=== PATIENT | male | born 1965 | race African-American/Black ===

== ENCOUNTER 2016-11-22 22:38 | Inpatient (IN) | payer MEDICAID ==
[~2016-11-22] VITALS: Ht 177.8 cm; Wt 96.6 kg
[~2016-11-22 22:38] MED LIST: DIVA500T35 PO; RISP3 PO
[2016-11-23] MEDS ORDERED: MAG HYDROX/AL HYDROX/SIMETH ES 30 ML SUSPENSION UDCUP PO PRN ×2 (02:45→10:30)
[2016-11-23] MEDS ORDERED: MAGNESIUM HYDROXIDE SUSPENSION 30 ML UDCUP PO PRN ×2 (02:45→10:30)
[2016-11-23] MEDS ORDERED: ACETAMINOPHEN 325 MG TABLET PO PRN ×2 (02:45→10:30)
[2016-11-23 03:15] VITALS: BP 128/85
[2016-11-23] MEDS ORDERED: INFLUENZA VIRUS VACCINE QVS 2016-17 (3YR+)/PF 60 MCG/0.5 ML SYRINGE IM ONE (03:45)
[2016-11-23] MEDS: LORazepam 2 MG TABLET PO PRN ×2 (04:20→16:36)
[2016-11-23] MEDS: HALOPERIDOL 5 MG TABLET PO PRN ×2 (04:20→16:36)
[2016-11-23 08:12] VITALS: BP 130/84
[2016-11-23] MEDS: DIVALPROEX SODIUM 500 MG DR TABLET PO SCH ×2 (10:21→16:36)
[2016-11-23] MEDS: RisperiDONE 3 MG TABLET PO SCH ×2 (10:21→16:36)
[2016-11-23] MEDS ORDERED: BENZOCAINE/MENTHOL LOZENGE MM PRN (10:30)
[2016-11-23] MEDS ORDERED: PETROLATUM,WHITE 71 GM JELLY TP PRN (10:30)
[2016-11-23] MEDS ORDERED: ONDANSETRON HCL 4 MG TABLET PO PRN (10:30)
[2016-11-23] MEDS ORDERED: CloNIDine HCL 0.1 MG TABLET PO PRN (10:30)
[2016-11-23] MEDS ORDERED: LOPERAMIDE HCL 2 MG CAPSULE PO PRN (10:30)
[2016-11-23] MEDS ORDERED: BACITRACIN 28.4 GM OINTMENT TP PRN (10:30)
[2016-11-23] MEDS ORDERED: ALBUTEROL SULFATE HFA 90 MCG/PUFF 8 GM INHALER IH PRN (10:30)
[2016-11-23 16:12] VITALS: BP 115/66
[2016-11-23] MEDS: LACTULOSE 20 GM/30 ML SOLUTION UDCUP PO SCH (21:47)
[2016-11-24 08:13] VITALS: BP 138/85
[2016-11-24] MEDS: CHOLECALCIFEROL (VIT D3) 1,000 UNITS TABLET PO SCH (08:27)
[2016-11-24] MEDS: LACTULOSE 20 GM/30 ML SOLUTION UDCUP PO SCH ×3 (08:27→17:17)
[2016-11-24] MEDS: RisperiDONE 3 MG TABLET PO SCH ×2 (08:27→17:18)
[2016-11-24] MEDS: DIVALPROEX SODIUM 500 MG DR TABLET PO SCH ×2 (08:27→17:18)
[2016-11-24] MEDS ORDERED: HALOPERIDOL 5 MG TABLET ONE (17:08)
[2016-11-24] MEDS ORDERED: LORazepam 2 MG TABLET ONE (17:08)
[2016-11-24] MEDS: HALOPERIDOL 5 MG TABLET PO PRN (17:18)
[2016-11-24] MEDS: LORazepam 2 MG TABLET PO PRN (17:18)
[2016-11-25 05:55] VITALS: BP 130/75
[2016-11-25] MEDS: LACTULOSE 20 GM/30 ML SOLUTION UDCUP PO SCH ×3 (09:23→16:00)
[2016-11-25] MEDS: RisperiDONE 3 MG TABLET PO SCH ×2 (09:24→16:00)
[2016-11-25] MEDS: CHOLECALCIFEROL (VIT D3) 1,000 UNITS TABLET PO SCH (09:24)
[2016-11-25] MEDS: DIVALPROEX SODIUM 500 MG DR TABLET PO SCH ×2 (09:24→16:00)
[2016-11-25] MEDS: IBUPROFEN 600 MG TABLET PO PRN (16:00)
[2016-11-26 04:25] VITALS: BP 139/72
[2016-11-26] MEDS: LORazepam 2 MG TABLET PO PRN ×2 (08:09→16:13)
[2016-11-26] MEDS: LACTULOSE 20 GM/30 ML SOLUTION UDCUP PO SCH ×3 (08:09→16:13)
[2016-11-26] MEDS: RisperiDONE 3 MG TABLET PO SCH ×2 (08:09→16:13)
[2016-11-26] MEDS: DIVALPROEX SODIUM 500 MG DR TABLET PO SCH ×2 (08:09→16:13)
[2016-11-26] MEDS: CHOLECALCIFEROL (VIT D3) 1,000 UNITS TABLET PO SCH (08:09)
[2016-11-26] MEDS: HALOPERIDOL 5 MG TABLET PO PRN (16:13)
[2016-11-26 16:49] VITALS: BP 118/78
[2016-11-27 05:30] VITALS: BP 123/71
[2016-11-27] MEDS: LACTULOSE 20 GM/30 ML SOLUTION UDCUP PO SCH ×3 (08:02→16:21)
[2016-11-27] MEDS: LORazepam 2 MG TABLET PO PRN ×2 (08:03→16:21)
[2016-11-27] MEDS: DIVALPROEX SODIUM 500 MG DR TABLET PO SCH ×2 (08:03→16:21)
[2016-11-27] MEDS: RisperiDONE 3 MG TABLET PO SCH ×2 (08:03→16:21)
[2016-11-27] MEDS: CHOLECALCIFEROL (VIT D3) 1,000 UNITS TABLET PO SCH (08:03)
[2016-11-27 10:00] VITALS: BP 109/64
[2016-11-27 16:02] VITALS: BP 110/72
[2016-11-27] MEDS: HALOPERIDOL 5 MG TABLET PO PRN (16:21)
[2016-11-28 04:41] VITALS: BP 115/76
[2016-11-28 08:22] VITALS: BP 108/69
[2016-11-28] MEDS: LORazepam 2 MG TABLET PO PRN ×2 (09:55→16:20)
[2016-11-28] MEDS: CHOLECALCIFEROL (VIT D3) 1,000 UNITS TABLET PO SCH (09:55)
[2016-11-28] MEDS: DIVALPROEX SODIUM 500 MG DR TABLET PO SCH ×2 (09:55→16:19)
[2016-11-28] MEDS: RisperiDONE 3 MG TABLET PO SCH ×2 (09:55→16:19)
[2016-11-28] MEDS: LACTULOSE 20 GM/30 ML SOLUTION UDCUP PO SCH ×3 (09:56→16:19)
[2016-11-28 16:00] VITALS: BP 106/64
[2016-11-28] MEDS: HALOPERIDOL 5 MG TABLET PO PRN (16:20)
[2016-11-29 08:13] VITALS: BP 135/78
[2016-11-29] MEDS: DIVALPROEX SODIUM 500 MG DR TABLET PO SCH ×2 (08:25→16:25)
[2016-11-29] MEDS: LACTULOSE 20 GM/30 ML SOLUTION UDCUP PO SCH ×3 (08:25→16:25)
[2016-11-29] MEDS: LORazepam 2 MG TABLET PO PRN (08:25)
[2016-11-29] MEDS: RisperiDONE 3 MG TABLET PO SCH ×2 (08:25→16:25)
[2016-11-29] MEDS: CHOLECALCIFEROL (VIT D3) 1,000 UNITS TABLET PO SCH (08:25)
[2016-11-29 16:21] VITALS: BP 127/76
[2016-11-30 06:34] VITALS: BP 124/68
[2016-11-30 08:30] VITALS: BP 112/82
[2016-11-30] MEDS: LACTULOSE 20 GM/30 ML SOLUTION UDCUP PO SCH ×3 (08:54→17:03)
[2016-11-30] MEDS: LORazepam 2 MG TABLET PO PRN ×2 (08:54→17:03)
[2016-11-30] MEDS: RisperiDONE 3 MG TABLET PO SCH ×2 (08:55→17:04)
[2016-11-30] MEDS: DIVALPROEX SODIUM 500 MG DR TABLET PO SCH ×2 (08:55→17:04)
[2016-11-30] MEDS: CHOLECALCIFEROL (VIT D3) 1,000 UNITS TABLET PO SCH (08:55)
[2016-11-30 16:17] VITALS: BP 135/77
[2016-12-01 08:42] LABS: BASOPHILS % (AUTO) 0.3 % (0.0-2.0); EOSINOPHILS % (AUTO) 0.7 % (1.0-6.0); HEMATOCRIT 33.2 % (41-53); HEMOGLOBIN 10.9 g/dL (13.5-17.5); LYMPHOCYTES # (AUTO) 2.3 K/uL (1.0-4.8); LYMPHOCYTES % (AUTO) 12.7 % (22.0-44.0); MEAN CORPUSCULAR HEMOGLOBIN 27.2 pg (26.0-34.0); MEAN CORPUSCULAR HGB CONC 32.7 G/dL (31.0-37.0); MEAN CORPUSCULAR VOLUME 83 fL (80-100); MONOCYTES # (AUTO) 1.7 K/uL (0.1-1.0); MONOCYTES % (AUTO) 9.4 % (2.0-9.0); NEUTROPHILS # (AUTO) 14.2 K/uL (1.8-7.7); NEUTROPHILS % (AUTO) 76.9 % (40.0-70.0); PLATELET COUNT (AUTO) 641 K/uL (150-450); RED BLOOD CELL COUNT(AUTO) 3.99 MIL/uL (4.50-5.90); RED CELL DISTRIBUTION WIDTH 13.5 % (11.5-14.5); WHITE BLOOD COUNT (AUTO) 18.4 K/uL (4.5-11.0)
[2016-12-01 09:07] LABS: ALANINE AMINOTRANSFERASE 25 U/L (12-78); ALBUMIN 2.8 g/dL (3.4-5.0); ANION GAP 6 mmol/L (8-16); ASPARTATE AMINOTRANSFERASE 15 U/L (15-37); BILIRUBIN,TOTAL 0.2 mg/dL (0.1-1.0); CALCIUM, TOTAL 8.6 mg/dL (8.8-10.5); CARBON DIOXIDE 31 mmol/L (22-29); CHLORIDE 102 mmol/L (98-107); CREATININE 0.79 mg/dL (0.60-1.30); GLOMERULAR FILTR. RATE CALC > 60 mL/min (>60); PHOSPHORUS 4.9 mg/dL (2.5-4.9); POTASSIUM 5.6 mmol/L (3.5-5.1); SODIUM SERUM 139 mmol/L (136-145); TOTAL PROTEIN, SERUM 7.3 g/dL (6.4-8.2); UREA NITROGEN, BLOOD 18 mg/dL (7-18)
[2016-12-01] MEDS: DIVALPROEX SODIUM 500 MG DR TABLET PO SCH ×2 (09:36→16:23)
[2016-12-01] MEDS: CHOLECALCIFEROL (VIT D3) 1,000 UNITS TABLET PO SCH (09:36)
[2016-12-01] MEDS: RisperiDONE 3 MG TABLET PO SCH ×2 (09:36→16:23)
[2016-12-01] MEDS: LACTULOSE 20 GM/30 ML SOLUTION UDCUP PO SCH ×3 (09:36→16:23)
[2016-12-01] MEDS: LORazepam 2 MG TABLET PO PRN ×2 (09:36→16:23)
[2016-12-01 16:14] VITALS: BP 117/75
[2016-12-01] MEDS ORDERED: SODIUM POLYSTYRENE SULFONATE 15 GM/60 ML SUSPENSION BOTTLE PO ONE (21:30)
[2016-12-02 06:31] VITALS: BP 120/76
[2016-12-02 08:13] VITALS: BP 137/82
[2016-12-02 09:39] LABS: HEMATOCRIT 32.5 % (41-53); HEMOGLOBIN 10.5 g/dL (13.5-17.5); MEAN CORPUSCULAR HEMOGLOBIN 26.7 pg (26.0-34.0); MEAN CORPUSCULAR HGB CONC 32.3 G/dL (31.0-37.0); MEAN CORPUSCULAR VOLUME 83 fL (80-100); PLATELET COUNT (AUTO) 720 K/uL (150-450); RED BLOOD CELL COUNT(AUTO) 3.92 MIL/uL (4.50-5.90); RED CELL DISTRIBUTION WIDTH 13.7 % (11.5-14.5); WHITE BLOOD COUNT (AUTO) 18.7 K/uL (4.5-11.0)
[2016-12-02 09:53] LABS: ANION GAP 7 mmol/L (8-16); CALCIUM, TOTAL 8.7 mg/dL (8.8-10.5); CARBON DIOXIDE 30 mmol/L (22-29); CHLORIDE 102 mmol/L (98-107); CREATININE 0.87 mg/dL (0.60-1.30); GLOMERULAR FILTR. RATE CALC > 60 mL/min (>60); SODIUM SERUM 139 mmol/L (136-145); UREA NITROGEN, BLOOD 22 mg/dL (7-18)
[2016-12-02] MEDS: RisperiDONE 3 MG TABLET PO SCH ×2 (09:54→16:32)
[2016-12-02] MEDS: DIVALPROEX SODIUM 500 MG DR TABLET PO SCH ×2 (09:54→16:32)
[2016-12-02] MEDS: CHOLECALCIFEROL (VIT D3) 1,000 UNITS TABLET PO SCH (09:54)
[2016-12-02] MEDS: LORazepam 2 MG TABLET PO PRN ×2 (09:54→16:32)
[2016-12-02] MEDS: LACTULOSE 20 GM/30 ML SOLUTION UDCUP PO SCH ×3 (09:55→16:32)
[2016-12-02 10:25] LABS: BAND NEUTROPHILS % (MANUAL) 12 % (1-5); LYMPHOCYTES % (MANUAL) 25 % (22-44); RBC MORPHOLOGY COMMENT NORMAL RBC MORPH; TOTAL CELLS COUNTED 100
[2016-12-02 16:04] VITALS: BP 128/76
[2016-12-02] MEDS: HALOPERIDOL 5 MG TABLET PO PRN (16:32)
[2016-12-03 06:10] VITALS: BP 120/73
[2016-12-03 07:26] LABS: APPEARANCE,URINE CLOUDY (CLEAR); GLUCOSE, URINE (UA) NEGATIVE (NEGATIVE); KETONES,URINE NEGATIVE (NEGATIVE); LEUKOCYTE ESTERASE ,URINE MODERATE (NEGATIVE); OCCULT BLOOD,URINE NEGATIVE (NEGATIVE); PROTEIN,URINE NEGATIVE (NEGATIVE)
[2016-12-03 07:30] LABS: ADD UA MICROSCOPIC YES
[2016-12-03 07:31] LABS: RBC,URINE 0-2 /HPF (0-2); SQUAMOUS EPITHELIAL CELL,UR Few /LPF (None Seen)
[2016-12-03 08:12] VITALS: BP 130/66
[2016-12-03] MEDS: CHOLECALCIFEROL (VIT D3) 1,000 UNITS TABLET PO SCH (09:35)
[2016-12-03] MEDS: LORazepam 2 MG TABLET PO PRN ×2 (09:35→17:22)
[2016-12-03] MEDS: RisperiDONE 3 MG TABLET PO SCH ×2 (09:35→17:22)
[2016-12-03] MEDS: LACTULOSE 20 GM/30 ML SOLUTION UDCUP PO SCH ×3 (09:36→17:22)
[2016-12-03] MEDS: DIVALPROEX SODIUM 500 MG DR TABLET PO SCH ×2 (09:36→17:22)
[2016-12-03 16:00] VITALS: BP 138/70
[2016-12-04 02:39] VITALS: BP 140/87
[2016-12-04 08:13] VITALS: BP 117/61
[2016-12-04] MEDS: LACTULOSE 20 GM/30 ML SOLUTION UDCUP PO SCH ×3 (09:11→16:30)
[2016-12-04] MEDS: CHOLECALCIFEROL (VIT D3) 1,000 UNITS TABLET PO SCH (09:11)
[2016-12-04] MEDS: RisperiDONE 3 MG TABLET PO SCH ×2 (09:11→16:30)
[2016-12-04] MEDS: DIVALPROEX SODIUM 500 MG DR TABLET PO SCH ×2 (09:11→16:30)
[2016-12-04] MEDS: CIPROFLOXACIN HCL 500 MG TABLET PO SCH (16:30)
[2016-12-05 01:30] VITALS: BP 125/83
[2016-12-05] MEDS: IBUPROFEN 600 MG TABLET PO PRN (01:36)
[2016-12-05 04:06] LABS: HEPATITIS Bs ANTIGEN SCREEN P Negative (Negative); HEPATITIS C AB SCREEN 0.2 s/co ratio (0.0-0.9)
[2016-12-05 08:25] VITALS: BP 135/80
[2016-12-05] MEDS: RisperiDONE 3 MG TABLET PO SCH ×2 (09:28→17:10)
[2016-12-05] MEDS: CHOLECALCIFEROL (VIT D3) 1,000 UNITS TABLET PO SCH (09:28)
[2016-12-05] MEDS: CIPROFLOXACIN HCL 500 MG TABLET PO SCH ×2 (09:28→17:10)
[2016-12-05] MEDS: DIVALPROEX SODIUM 500 MG DR TABLET PO SCH ×2 (09:28→17:10)
[2016-12-05] MEDS: LACTULOSE 20 GM/30 ML SOLUTION UDCUP PO SCH ×3 (09:28→17:10)
[2016-12-05 16:00] VITALS: BP 131/72
[2016-12-05] MEDS: LORazepam 2 MG TABLET PO PRN (17:10)
[2016-12-05] MEDS: ZOLPIDEM TARTRATE 10 MG TABLET PO PRN (20:12)
[2016-12-06 07:31] VITALS: BP 141/84
[2016-12-06 08:13] VITALS: BP 140/68
[2016-12-06] MEDS: DIVALPROEX SODIUM 500 MG DR TABLET PO SCH ×2 (09:54→16:38)
[2016-12-06] MEDS: LACTULOSE 20 GM/30 ML SOLUTION UDCUP PO SCH ×3 (09:54→16:38)
[2016-12-06] MEDS: CIPROFLOXACIN HCL 500 MG TABLET PO SCH ×2 (09:54→16:38)
[2016-12-06] MEDS: RisperiDONE 3 MG TABLET PO SCH ×2 (09:54→16:38)
[2016-12-06] MEDS: CHOLECALCIFEROL (VIT D3) 1,000 UNITS TABLET PO SCH (09:55)
[2016-12-06] MEDS: LORazepam 2 MG TABLET PO PRN ×2 (09:55→16:38)
[2016-12-06 16:00] VITALS: BP 110/69
[2016-12-06] MEDS: AMOX TR/POT CLAV 500 MG/125 MG TABLET PO SCH (16:38)
[2016-12-07 02:03] VITALS: BP 124/66
[2016-12-07 08:13] VITALS: BP 140/85
[2016-12-07] MEDS: CIPROFLOXACIN HCL 500 MG TABLET PO SCH ×2 (09:57→16:22)
[2016-12-07] MEDS: DIVALPROEX SODIUM 500 MG DR TABLET PO SCH ×2 (09:57→16:22)
[2016-12-07] MEDS: RisperiDONE 3 MG TABLET PO SCH ×2 (09:57→16:22)
[2016-12-07] MEDS: AMOX TR/POT CLAV 500 MG/125 MG TABLET PO SCH ×2 (09:57→16:22)
[2016-12-07] MEDS: CHOLECALCIFEROL (VIT D3) 1,000 UNITS TABLET PO SCH (09:57)
[2016-12-07] MEDS: LACTULOSE 20 GM/30 ML SOLUTION UDCUP PO SCH (09:57)
[2016-12-07] MEDS: LORazepam 2 MG TABLET PO PRN ×2 (09:57→16:22)
[2016-12-07 16:16] VITALS: BP 127/70
[2016-12-07] MEDS: HALOPERIDOL 5 MG TABLET PO PRN (16:22)
[2016-12-08 06:33] VITALS: BP 137/80
[2016-12-08] MEDS: RisperiDONE 3 MG TABLET PO SCH ×2 (08:03→16:12)
[2016-12-08] MEDS: CIPROFLOXACIN HCL 500 MG TABLET PO SCH ×2 (08:03→16:12)
[2016-12-08] MEDS: LACTULOSE 20 GM/30 ML SOLUTION UDCUP PO SCH (08:03)
[2016-12-08] MEDS: CHOLECALCIFEROL (VIT D3) 1,000 UNITS TABLET PO SCH (08:03)
[2016-12-08] MEDS: DIVALPROEX SODIUM 500 MG DR TABLET PO SCH ×2 (08:03→16:12)
[2016-12-08] MEDS: AMOX TR/POT CLAV 500 MG/125 MG TABLET PO SCH ×2 (08:03→16:12)
[2016-12-08 08:11] VITALS: BP 135/80
[2016-12-08] MEDS: IBUPROFEN 600 MG TABLET PO PRN (13:25)
[2016-12-08 16:08] VITALS: BP 148/67
[2016-12-08] MEDS: LORazepam 2 MG TABLET PO PRN (16:12)
[2016-12-08] MEDS: HALOPERIDOL 5 MG TABLET PO PRN (16:12)
[2016-12-09 00:31] VITALS: BP 147/65
[2016-12-09 08:13] VITALS: BP 145/85
[2016-12-09] MEDS: RisperiDONE 3 MG TABLET PO SCH ×2 (09:15→17:13)
[2016-12-09] MEDS: AMOX TR/POT CLAV 500 MG/125 MG TABLET PO SCH ×2 (09:15→17:13)
[2016-12-09] MEDS: CIPROFLOXACIN HCL 500 MG TABLET PO SCH ×2 (09:15→17:13)
[2016-12-09] MEDS: LACTULOSE 20 GM/30 ML SOLUTION UDCUP PO SCH (09:15)
[2016-12-09] MEDS: DIVALPROEX SODIUM 500 MG DR TABLET PO SCH ×2 (09:15→17:13)
[2016-12-09] MEDS: CHOLECALCIFEROL (VIT D3) 1,000 UNITS TABLET PO SCH (09:15)
[2016-12-09] MEDS: LORazepam 2 MG TABLET PO PRN ×2 (09:16→17:13)
[2016-12-09] MEDS: HALOPERIDOL 5 MG TABLET PO PRN ×2 (09:16→17:13)
[2016-12-09 16:00] VITALS: BP 124/67
[2016-12-10 06:50] VITALS: BP 134/85
[2016-12-10 08:39] VITALS: BP 136/64
[2016-12-10] MEDS: CIPROFLOXACIN HCL 500 MG TABLET PO SCH ×2 (09:16→17:42)
[2016-12-10] MEDS: DIVALPROEX SODIUM 500 MG DR TABLET PO SCH ×2 (09:16→17:42)
[2016-12-10] MEDS: LACTULOSE 20 GM/30 ML SOLUTION UDCUP PO SCH (09:17)
[2016-12-10] MEDS: AMOX TR/POT CLAV 500 MG/125 MG TABLET PO SCH ×2 (09:17→17:42)
[2016-12-10] MEDS: CHOLECALCIFEROL (VIT D3) 1,000 UNITS TABLET PO SCH (09:17)
[2016-12-10] MEDS: RisperiDONE 3 MG TABLET PO SCH ×2 (09:17→17:43)
[2016-12-10 16:00] VITALS: BP 145/86
[2016-12-10] MEDS: LORazepam 2 MG TABLET PO PRN (17:42)
[2016-12-10] MEDS: HALOPERIDOL 5 MG TABLET PO PRN (17:43)
[2016-12-11] MEDS: LORazepam 2 MG TABLET PO PRN ×3 (00:28→16:21)
[2016-12-11] MEDS: ZOLPIDEM TARTRATE 10 MG TABLET PO PRN (00:28)
[2016-12-11 00:34] VITALS: BP 139/76
[2016-12-11 08:12] VITALS: BP 125/81
[2016-12-11] MEDS: CIPROFLOXACIN HCL 500 MG TABLET PO SCH (09:49)
[2016-12-11] MEDS: AMOX TR/POT CLAV 500 MG/125 MG TABLET PO SCH ×2 (09:49→16:21)
[2016-12-11] MEDS: LACTULOSE 20 GM/30 ML SOLUTION UDCUP PO SCH (09:49)
[2016-12-11] MEDS: CHOLECALCIFEROL (VIT D3) 1,000 UNITS TABLET PO SCH (09:50)
[2016-12-11] MEDS: DIVALPROEX SODIUM 500 MG DR TABLET PO SCH ×2 (09:50→16:21)
[2016-12-11] MEDS: RisperiDONE 3 MG TABLET PO SCH ×2 (09:50→16:21)
[2016-12-11 16:12] VITALS: BP 118/78
[2016-12-11] MEDS: HALOPERIDOL 5 MG TABLET PO PRN (16:21)
[2016-12-12 03:50] VITALS: BP 112/79
[2016-12-12 08:13] VITALS: BP 126/86
[2016-12-12] MEDS: LACTULOSE 20 GM/30 ML SOLUTION UDCUP PO SCH (09:26)
[2016-12-12] MEDS: RisperiDONE 3 MG TABLET PO SCH ×2 (09:27→16:42)
[2016-12-12] MEDS: AMOX TR/POT CLAV 500 MG/125 MG TABLET PO SCH ×2 (09:27→16:42)
[2016-12-12] MEDS: DIVALPROEX SODIUM 500 MG DR TABLET PO SCH ×2 (09:27→16:42)
[2016-12-12] MEDS: CHOLECALCIFEROL (VIT D3) 1,000 UNITS TABLET PO SCH (09:27)
[2016-12-12 16:00] VITALS: BP 128/84
[2016-12-12] MEDS: HALOPERIDOL 5 MG TABLET PO PRN (16:42)
[2016-12-12] MEDS: LORazepam 2 MG TABLET PO PRN (16:42)
[2016-12-13 01:00] VITALS: BP 117/71
[2016-12-13] MEDS: LORazepam 2 MG TABLET PO PRN ×2 (01:04→16:24)
[2016-12-13] MEDS: ZOLPIDEM TARTRATE 10 MG TABLET PO PRN (01:04)
[2016-12-13 08:12] VITALS: BP 140/84
[2016-12-13] MEDS: CHOLECALCIFEROL (VIT D3) 1,000 UNITS TABLET PO SCH (09:42)
[2016-12-13] MEDS: AMOX TR/POT CLAV 500 MG/125 MG TABLET PO SCH ×2 (09:42→16:24)
[2016-12-13] MEDS: LACTULOSE 20 GM/30 ML SOLUTION UDCUP PO SCH (09:42)
[2016-12-13] MEDS: DIVALPROEX SODIUM 500 MG DR TABLET PO SCH ×2 (09:43→16:24)
[2016-12-13] MEDS: RisperiDONE 3 MG TABLET PO SCH ×2 (09:43→16:24)
[2016-12-13 16:00] VITALS: BP 130/70
[2016-12-13] MEDS: HALOPERIDOL 5 MG TABLET PO PRN (16:24)
[2016-12-14 06:33] VITALS: BP 125/63
[2016-12-14 08:38] VITALS: BP 122/79
[2016-12-14] MEDS: CHOLECALCIFEROL (VIT D3) 1,000 UNITS TABLET PO SCH (09:13)
[2016-12-14] MEDS: DIVALPROEX SODIUM 500 MG DR TABLET PO SCH ×2 (09:13→16:36)
[2016-12-14] MEDS: RisperiDONE 3 MG TABLET PO SCH ×2 (09:14→16:36)
[2016-12-14] MEDS: LACTULOSE 20 GM/30 ML SOLUTION UDCUP PO SCH (09:14)
[2016-12-14] MEDS: AMOX TR/POT CLAV 500 MG/125 MG TABLET PO SCH ×2 (09:45→16:36)
[2016-12-14 16:00] VITALS: BP 127/71
[2016-12-14] MEDS: LORazepam 2 MG TABLET PO PRN (16:36)
[2016-12-14] MEDS: HALOPERIDOL 5 MG TABLET PO PRN (16:36)
[2016-12-14] MEDS ORDERED: TUBERCULIN, PURIFIED PROTEIN DERIVATIVE 5 TU/0.1 ML SYG ID ONE (18:30)
[2016-12-15] MEDS: LORazepam 2 MG TABLET PO PRN ×2 (01:03→18:07)
[2016-12-15] MEDS: ZOLPIDEM TARTRATE 10 MG TABLET PO PRN (01:03)
[2016-12-15] MEDS: HALOPERIDOL 5 MG TABLET PO PRN ×2 (01:04→18:06)
[2016-12-15 01:05] VITALS: BP 133/79
[2016-12-15 08:28] VITALS: BP 133/77
[2016-12-15] MEDS: AMOX TR/POT CLAV 500 MG/125 MG TABLET PO SCH ×2 (09:04→16:41)
[2016-12-15] MEDS: DIVALPROEX SODIUM 500 MG DR TABLET PO SCH ×2 (09:04→16:41)
[2016-12-15] MEDS: CHOLECALCIFEROL (VIT D3) 1,000 UNITS TABLET PO SCH (09:04)
[2016-12-15] MEDS: LACTULOSE 20 GM/30 ML SOLUTION UDCUP PO SCH (09:04)
[2016-12-15] MEDS: RisperiDONE 3 MG TABLET PO SCH ×2 (09:04→16:41)
[2016-12-15 17:00] VITALS: BP 137/67
[2016-12-16 06:30] VITALS: BP 129/79
[2016-12-16] MEDS: RisperiDONE 3 MG TABLET PO SCH ×2 (09:25→17:14)
[2016-12-16] MEDS: AMOX TR/POT CLAV 500 MG/125 MG TABLET PO SCH (09:25)
[2016-12-16] MEDS: DIVALPROEX SODIUM 500 MG DR TABLET PO SCH ×2 (09:25→17:13)
[2016-12-16] MEDS: CHOLECALCIFEROL (VIT D3) 1,000 UNITS TABLET PO SCH (09:25)
[2016-12-16] MEDS: LACTULOSE 20 GM/30 ML SOLUTION UDCUP PO SCH (09:25)
[2016-12-16] MEDS: LORazepam 2 MG TABLET PO PRN ×2 (09:25→17:14)
[2016-12-16 16:17] VITALS: BP 125/71
[2016-12-16] MEDS: HALOPERIDOL 5 MG TABLET PO PRN (17:14)
[2016-12-17] MEDS: CHOLECALCIFEROL (VIT D3) 1,000 UNITS TABLET PO SCH (09:41)
[2016-12-17] MEDS: LACTULOSE 20 GM/30 ML SOLUTION UDCUP PO SCH (09:41)
[2016-12-17] MEDS: DIVALPROEX SODIUM 500 MG DR TABLET PO SCH ×2 (09:41→16:15)
[2016-12-17] MEDS: RisperiDONE 3 MG TABLET PO SCH ×2 (09:41→16:15)
[2016-12-17] MEDS: LORazepam 2 MG TABLET PO PRN (16:15)
[2016-12-17 16:26] VITALS: BP 137/71
[2016-12-18 05:56] VITALS: BP 136/72
[2016-12-18 09:04] VITALS: BP 131/73
[2016-12-18] MEDS: HALOPERIDOL 5 MG TABLET PO PRN (11:34)
[2016-12-18] MEDS: DIVALPROEX SODIUM 500 MG DR TABLET PO SCH ×2 (11:34→16:19)
[2016-12-18] MEDS: LORazepam 2 MG TABLET PO PRN ×2 (11:34→16:19)
[2016-12-18] MEDS: CHOLECALCIFEROL (VIT D3) 1,000 UNITS TABLET PO SCH (11:34)
[2016-12-18] MEDS: RisperiDONE 3 MG TABLET PO SCH ×2 (11:34→16:19)
[2016-12-18] MEDS: LACTULOSE 20 GM/30 ML SOLUTION UDCUP PO SCH (11:34)
[2016-12-18 16:00] VITALS: BP 118/65
[2016-12-19 05:20] VITALS: BP 137/69
[2016-12-19] MEDS: CHOLECALCIFEROL (VIT D3) 1,000 UNITS TABLET PO SCH (08:50)
[2016-12-19] MEDS: DIVALPROEX SODIUM 500 MG DR TABLET PO SCH ×2 (08:50→17:30)
[2016-12-19] MEDS: RisperiDONE 3 MG TABLET PO SCH ×2 (08:50→17:30)
[2016-12-19] MEDS: LACTULOSE 20 GM/30 ML SOLUTION UDCUP PO SCH (08:50)
[2016-12-19 16:20] VITALS: BP 121/68
[2016-12-19] MEDS: LORazepam 2 MG TABLET PO PRN (17:30)
[2016-12-20 03:06] VITALS: BP 126/70
[2016-12-20 08:37] VITALS: BP 112/78
[2016-12-20] MEDS: LORazepam 2 MG TABLET PO PRN ×2 (09:40→17:00)
[2016-12-20] MEDS: RisperiDONE 3 MG TABLET PO SCH ×2 (09:40→17:00)
[2016-12-20] MEDS: LACTULOSE 20 GM/30 ML SOLUTION UDCUP PO SCH (09:40)
[2016-12-20] MEDS: CHOLECALCIFEROL (VIT D3) 1,000 UNITS TABLET PO SCH (09:40)
[2016-12-20] MEDS: DIVALPROEX SODIUM 500 MG DR TABLET PO SCH ×2 (09:40→17:00)
[2016-12-20] MEDS ORDERED: DICLOFENAC SODIUM 1% 100 GM GEL [2GM] TP PRN (12:00)
[2016-12-20 16:00] VITALS: BP 114/68
[2016-12-21 05:47] VITALS: BP 119/72
[2016-12-21 08:31] VITALS: BP 137/80
[2016-12-21] MEDS: LACTULOSE 20 GM/30 ML SOLUTION UDCUP PO SCH (08:48)
[2016-12-21] MEDS: DIVALPROEX SODIUM 500 MG DR TABLET PO SCH ×2 (08:48→16:17)
[2016-12-21] MEDS: LORazepam 2 MG TABLET PO PRN ×2 (08:48→16:17)
[2016-12-21] MEDS: CHOLECALCIFEROL (VIT D3) 1,000 UNITS TABLET PO SCH (08:48)
[2016-12-21] MEDS: RisperiDONE 3 MG TABLET PO SCH ×2 (08:48→16:17)
[2016-12-21 16:00] VITALS: BP 129/73
[2016-12-21] MEDS: HALOPERIDOL 5 MG TABLET PO PRN (16:17)
[2016-12-22 06:53] VITALS: BP 125/76
[2016-12-22 08:12] VITALS: BP 120/83
[2016-12-22] MEDS: LACTULOSE 20 GM/30 ML SOLUTION UDCUP PO SCH (08:58)
[2016-12-22] MEDS: RisperiDONE 3 MG TABLET PO SCH ×2 (08:58→16:04)
[2016-12-22] MEDS: CHOLECALCIFEROL (VIT D3) 1,000 UNITS TABLET PO SCH (08:58)
[2016-12-22] MEDS: DIVALPROEX SODIUM 500 MG DR TABLET PO SCH ×2 (08:58→16:04)
[2016-12-22 16:00] VITALS: BP 132/80
[2016-12-22] MEDS: LORazepam 2 MG TABLET PO PRN (16:04)
[2016-12-23 05:15] VITALS: BP 115/68
[2016-12-23 08:25] VITALS: BP 116/63
[2016-12-23] MEDS: RisperiDONE 3 MG TABLET PO SCH (08:58)
[2016-12-23] MEDS: CHOLECALCIFEROL (VIT D3) 1,000 UNITS TABLET PO SCH (08:58)
[2016-12-23] MEDS: LACTULOSE 20 GM/30 ML SOLUTION UDCUP PO SCH (08:58)
[2016-12-23] MEDS: DIVALPROEX SODIUM 500 MG DR TABLET PO SCH ×3 (08:58→16:29)
[2016-12-23 16:00] VITALS: BP 134/68
[2016-12-23] MEDS: LORazepam 2 MG TABLET PO PRN (16:29)
[2016-12-23] MEDS: BENZTROPINE MESYLATE 1 MG TABLET PO SCH (16:29)
[2016-12-23] MEDS: QUEtiapine FUMARATE 200 MG TABLET PO SCH (20:24)
[2016-12-23] MEDS: HALOPERIDOL 10 MG TABLET PO SCH (20:24)
[2016-12-24 06:40] VITALS: BP 135/86
[2016-12-24 08:35] VITALS: BP 115/62
[2016-12-24] MEDS: CHOLECALCIFEROL (VIT D3) 1,000 UNITS TABLET PO SCH (09:03)
[2016-12-24] MEDS: BENZTROPINE MESYLATE 1 MG TABLET PO SCH ×2 (09:03→17:02)
[2016-12-24] MEDS: DIVALPROEX SODIUM 500 MG DR TABLET PO SCH ×3 (09:03→17:02)
[2016-12-24] MEDS: LACTULOSE 20 GM/30 ML SOLUTION UDCUP PO SCH (09:03)
[2016-12-24 16:16] VITALS: BP 138/75
[2016-12-24] MEDS: HALOPERIDOL 10 MG TABLET PO SCH (21:27)
[2016-12-24] MEDS: QUEtiapine FUMARATE 200 MG TABLET PO SCH (21:27)
[2016-12-25 05:49] VITALS: BP 133/72
[2016-12-25] MEDS: DIVALPROEX SODIUM 500 MG DR TABLET PO SCH ×3 (08:56→17:25)
[2016-12-25] MEDS: BENZTROPINE MESYLATE 1 MG TABLET PO SCH ×2 (08:56→17:25)
[2016-12-25] MEDS: LACTULOSE 20 GM/30 ML SOLUTION UDCUP PO SCH (08:56)
[2016-12-25] MEDS: CHOLECALCIFEROL (VIT D3) 1,000 UNITS TABLET PO SCH (08:56)
[2016-12-25 16:32] VITALS: BP 139/76
[2016-12-25] MEDS: QUEtiapine FUMARATE 200 MG TABLET PO SCH (22:06)
[2016-12-25] MEDS: HALOPERIDOL 10 MG TABLET PO SCH (22:06)
[2016-12-26 05:55] VITALS: BP 105/66
[2016-12-26] MEDS: BENZTROPINE MESYLATE 1 MG TABLET PO SCH ×2 (08:27→16:19)
[2016-12-26] MEDS: CHOLECALCIFEROL (VIT D3) 1,000 UNITS TABLET PO SCH (08:27)
[2016-12-26] MEDS: LACTULOSE 20 GM/30 ML SOLUTION UDCUP PO SCH (08:27)
[2016-12-26] MEDS: DIVALPROEX SODIUM 500 MG DR TABLET PO SCH ×3 (08:27→16:19)
[2016-12-26 08:59] VITALS: BP 107/67
[2016-12-26] MEDS: HALOPERIDOL 10 MG TABLET PO SCH (20:29)
[2016-12-26] MEDS: QUEtiapine FUMARATE 200 MG TABLET PO SCH (20:29)
[2016-12-27 07:07] VITALS: BP 102/71
[2016-12-27 08:18] VITALS: BP 105/64
[2016-12-27] MEDS: DIVALPROEX SODIUM 500 MG DR TABLET PO SCH ×3 (09:53→17:44)
[2016-12-27] MEDS: LACTULOSE 20 GM/30 ML SOLUTION UDCUP PO SCH (09:53)
[2016-12-27] MEDS: CHOLECALCIFEROL (VIT D3) 1,000 UNITS TABLET PO SCH (09:53)
[2016-12-27] MEDS: BENZTROPINE MESYLATE 1 MG TABLET PO SCH ×2 (09:53→17:44)
[2016-12-27 16:00] VITALS: BP 119/76
[2016-12-27] MEDS: HALOPERIDOL 10 MG TABLET PO SCH (20:33)
[2016-12-27] MEDS: QUEtiapine FUMARATE 200 MG TABLET PO SCH (20:33)
[2016-12-28 06:56] VITALS: BP 123/78
[2016-12-28 08:40] VITALS: BP 127/73
[2016-12-28] MEDS: BENZTROPINE MESYLATE 1 MG TABLET PO SCH ×2 (09:11→16:44)
[2016-12-28] MEDS: LACTULOSE 20 GM/30 ML SOLUTION UDCUP PO SCH (09:11)
[2016-12-28] MEDS: DIVALPROEX SODIUM 500 MG DR TABLET PO SCH ×3 (09:11→16:44)
[2016-12-28] MEDS: CHOLECALCIFEROL (VIT D3) 1,000 UNITS TABLET PO SCH (09:11)
[2016-12-28 16:00] VITALS: BP 112/67
[2016-12-28] MEDS: QUEtiapine FUMARATE 200 MG TABLET PO SCH (20:35)
[2016-12-28] MEDS: HALOPERIDOL 10 MG TABLET PO SCH (20:35)
[2016-12-29 07:13] VITALS: BP 115/75
[2016-12-29 08:37] VITALS: BP 112/66
[2016-12-29] MEDS: CHOLECALCIFEROL (VIT D3) 1,000 UNITS TABLET PO SCH (09:22)
[2016-12-29] MEDS: DIVALPROEX SODIUM 500 MG DR TABLET PO SCH ×3 (09:22→16:18)
[2016-12-29] MEDS: BENZTROPINE MESYLATE 1 MG TABLET PO SCH ×2 (09:22→16:18)
[2016-12-29] MEDS: LACTULOSE 20 GM/30 ML SOLUTION UDCUP PO SCH (09:22)
[2016-12-29 16:05] VITALS: BP 116/68
[2016-12-29] MEDS: QUEtiapine FUMARATE 200 MG TABLET PO SCH (20:02)
[2016-12-29] MEDS: HALOPERIDOL 10 MG TABLET PO SCH (20:02)
[2016-12-30 05:28] VITALS: BP 118/75
[2016-12-30 08:44] VITALS: BP 98/60
[2016-12-30] MEDS: CHOLECALCIFEROL (VIT D3) 1,000 UNITS TABLET PO SCH (09:13)
[2016-12-30] MEDS: BENZTROPINE MESYLATE 1 MG TABLET PO SCH ×2 (09:13→16:44)
[2016-12-30] MEDS: LACTULOSE 20 GM/30 ML SOLUTION UDCUP PO SCH (09:13)
[2016-12-30] MEDS: DIVALPROEX SODIUM 500 MG DR TABLET PO SCH ×3 (09:13→16:43)
[2016-12-30 16:19] VITALS: BP 116/71
[2016-12-30] MEDS: QUEtiapine FUMARATE 200 MG TABLET PO SCH (20:30)
[2016-12-30] MEDS: HALOPERIDOL 10 MG TABLET PO SCH (20:30)
[2016-12-31 06:18] VITALS: BP 108/62
[2016-12-31] MEDS: LACTULOSE 20 GM/30 ML SOLUTION UDCUP PO SCH (09:19)
[2016-12-31] MEDS: CHOLECALCIFEROL (VIT D3) 1,000 UNITS TABLET PO SCH (09:19)
[2016-12-31] MEDS: BENZTROPINE MESYLATE 1 MG TABLET PO SCH ×2 (09:19→16:32)
[2016-12-31] MEDS: DIVALPROEX SODIUM 500 MG DR TABLET PO SCH ×3 (09:19→16:32)
[2016-12-31 09:43] VITALS: BP 112/77
[2016-12-31 16:03] VITALS: BP 114/69
[2016-12-31] MEDS: QUEtiapine FUMARATE 200 MG TABLET PO SCH (20:46)
[2016-12-31] MEDS: HALOPERIDOL 10 MG TABLET PO SCH (20:46)
[2017-01-01 06:38] VITALS: BP 117/65
[2017-01-01 08:14] VITALS: BP 116/65
[2017-01-01] MEDS: DIVALPROEX SODIUM 500 MG DR TABLET PO SCH ×3 (08:55→16:28)
[2017-01-01] MEDS: LACTULOSE 20 GM/30 ML SOLUTION UDCUP PO SCH (08:55)
[2017-01-01] MEDS: CHOLECALCIFEROL (VIT D3) 1,000 UNITS TABLET PO SCH (08:55)
[2017-01-01] MEDS: BENZTROPINE MESYLATE 1 MG TABLET PO SCH ×2 (08:55→16:28)
[2017-01-01 16:02] VITALS: BP 126/70
[2017-01-01] MEDS: QUEtiapine FUMARATE 200 MG TABLET PO SCH (20:04)
[2017-01-01] MEDS: HALOPERIDOL 10 MG TABLET PO SCH (20:04)
[2017-01-02 06:50] VITALS: BP 103/62
[2017-01-02 08:42] VITALS: BP 121/69
[2017-01-02] MEDS: CHOLECALCIFEROL (VIT D3) 1,000 UNITS TABLET PO SCH (08:46)
[2017-01-02] MEDS: DIVALPROEX SODIUM 500 MG DR TABLET PO SCH ×3 (08:46→16:15)
[2017-01-02] MEDS: LACTULOSE 20 GM/30 ML SOLUTION UDCUP PO SCH (08:46)
[2017-01-02] MEDS: BENZTROPINE MESYLATE 1 MG TABLET PO SCH ×2 (08:48→16:15)
[2017-01-02] MEDS: HALOPERIDOL 10 MG TABLET PO SCH (20:26)
[2017-01-02] MEDS: QUEtiapine FUMARATE 200 MG TABLET PO SCH (20:26)
[2017-01-03 06:53] VITALS: BP 129/68
[2017-01-03 08:12] VITALS: BP 114/76
[2017-01-03] MEDS: BENZTROPINE MESYLATE 1 MG TABLET PO SCH ×2 (10:02→16:48)
[2017-01-03] MEDS: LACTULOSE 20 GM/30 ML SOLUTION UDCUP PO SCH (10:02)
[2017-01-03] MEDS: DIVALPROEX SODIUM 500 MG DR TABLET PO SCH ×3 (10:02→16:48)
[2017-01-03] MEDS: CHOLECALCIFEROL (VIT D3) 1,000 UNITS TABLET PO SCH (10:02)
[2017-01-03 16:00] VITALS: BP 134/79
[2017-01-03] MEDS: HALOPERIDOL 10 MG TABLET PO SCH (20:47)
[2017-01-03] MEDS: QUEtiapine FUMARATE 200 MG TABLET PO SCH (20:47)
[2017-01-04 05:39] VITALS: BP 126/78
[2017-01-04 08:30] VITALS: BP 125/82
[2017-01-04] MEDS: BENZTROPINE MESYLATE 1 MG TABLET PO SCH ×2 (10:08→16:19)
[2017-01-04] MEDS: DIVALPROEX SODIUM 500 MG DR TABLET PO SCH ×3 (10:08→16:19)
[2017-01-04] MEDS: LACTULOSE 20 GM/30 ML SOLUTION UDCUP PO SCH (10:08)
[2017-01-04] MEDS: CHOLECALCIFEROL (VIT D3) 1,000 UNITS TABLET PO SCH (10:08)
[2017-01-04 16:23] VITALS: BP 127/68
[2017-01-04] MEDS: HALOPERIDOL 10 MG TABLET PO SCH (20:46)
[2017-01-04] MEDS: QUEtiapine FUMARATE 200 MG TABLET PO SCH (20:46)
[2017-01-05 06:16] VITALS: BP 124/62
[2017-01-05] MEDS: LACTULOSE 20 GM/30 ML SOLUTION UDCUP PO SCH (09:11)
[2017-01-05] MEDS: BENZTROPINE MESYLATE 1 MG TABLET PO SCH ×2 (09:11→16:24)
[2017-01-05] MEDS: CHOLECALCIFEROL (VIT D3) 1,000 UNITS TABLET PO SCH (09:11)
[2017-01-05] MEDS: DIVALPROEX SODIUM 500 MG DR TABLET PO SCH ×3 (09:11→16:24)
[2017-01-05 16:27] VITALS: BP 119/79
[2017-01-05] MEDS: HALOPERIDOL 10 MG TABLET PO SCH (20:16)
[2017-01-05] MEDS: QUEtiapine FUMARATE 200 MG TABLET PO SCH (20:16)
[2017-01-06 07:12] VITALS: BP 122/72
[2017-01-06 08:12] VITALS: BP 127/64
[2017-01-06] MEDS: LACTULOSE 20 GM/30 ML SOLUTION UDCUP PO SCH (08:47)
[2017-01-06] MEDS: BENZTROPINE MESYLATE 1 MG TABLET PO SCH ×2 (08:47→16:36)
[2017-01-06] MEDS: DIVALPROEX SODIUM 500 MG DR TABLET PO SCH ×3 (08:47→16:36)
[2017-01-06] MEDS: CHOLECALCIFEROL (VIT D3) 1,000 UNITS TABLET PO SCH (08:47)
[2017-01-06 16:00] VITALS: BP 130/73
[2017-01-06] MEDS: QUEtiapine FUMARATE 200 MG TABLET PO SCH (20:12)
[2017-01-06] MEDS: HALOPERIDOL 10 MG TABLET PO SCH (20:12)
[2017-01-07 06:18] VITALS: BP 135/75
[2017-01-07 08:39] VITALS: BP 127/62
[2017-01-07] MEDS: LACTULOSE 20 GM/30 ML SOLUTION UDCUP PO SCH (08:56)
[2017-01-07] MEDS: DIVALPROEX SODIUM 500 MG DR TABLET PO SCH ×3 (08:56→16:01)
[2017-01-07] MEDS: BENZTROPINE MESYLATE 1 MG TABLET PO SCH ×2 (08:56→16:01)
[2017-01-07] MEDS: CHOLECALCIFEROL (VIT D3) 1,000 UNITS TABLET PO SCH (08:56)
[2017-01-07] MEDS: IBUPROFEN 600 MG TABLET PO PRN (16:05)
[2017-01-07 16:26] VITALS: BP 140/66
[2017-01-07] MEDS: QUEtiapine FUMARATE 200 MG TABLET PO SCH (20:41)
[2017-01-07] MEDS: HALOPERIDOL 10 MG TABLET PO SCH (20:41)
[2017-01-08 06:48] VITALS: BP 128/75
[2017-01-08 08:41] VITALS: BP 123/67
[2017-01-08] MEDS: BENZTROPINE MESYLATE 1 MG TABLET PO SCH ×2 (08:57→16:11)
[2017-01-08] MEDS: DIVALPROEX SODIUM 500 MG DR TABLET PO SCH ×3 (08:57→16:11)
[2017-01-08] MEDS: LACTULOSE 20 GM/30 ML SOLUTION UDCUP PO SCH (08:57)
[2017-01-08] MEDS: CHOLECALCIFEROL (VIT D3) 1,000 UNITS TABLET PO SCH (08:57)
[2017-01-08 16:27] VITALS: BP 124/79
[2017-01-08] MEDS: QUEtiapine FUMARATE 200 MG TABLET PO SCH (20:22)
[2017-01-08] MEDS: HALOPERIDOL 10 MG TABLET PO SCH (20:22)
[2017-01-09 06:42] VITALS: BP 108/76
[2017-01-09 08:12] VITALS: BP 135/73
[2017-01-09] MEDS: LACTULOSE 20 GM/30 ML SOLUTION UDCUP PO SCH (08:56)
[2017-01-09] MEDS: CHOLECALCIFEROL (VIT D3) 1,000 UNITS TABLET PO SCH (08:56)
[2017-01-09] MEDS: BENZTROPINE MESYLATE 1 MG TABLET PO SCH ×2 (08:56→16:15)
[2017-01-09] MEDS: DIVALPROEX SODIUM 500 MG DR TABLET PO SCH ×3 (08:57→16:15)
[2017-01-09 16:22] VITALS: BP 117/82
[2017-01-09] MEDS: QUEtiapine FUMARATE 200 MG TABLET PO SCH (20:32)
[2017-01-09] MEDS: HALOPERIDOL 10 MG TABLET PO SCH (20:32)
[2017-01-10 06:41] VITALS: BP 112/77
[2017-01-10 08:12] VITALS: BP 122/70
[2017-01-10] MEDS: DIVALPROEX SODIUM 500 MG DR TABLET PO SCH ×3 (09:18→16:16)
[2017-01-10] MEDS: CHOLECALCIFEROL (VIT D3) 1,000 UNITS TABLET PO SCH (09:18)
[2017-01-10] MEDS: BENZTROPINE MESYLATE 1 MG TABLET PO SCH ×2 (09:18→16:16)
[2017-01-10 16:00] VITALS: BP 115/72
[2017-01-10] MEDS: HALOPERIDOL 10 MG TABLET PO SCH (20:39)
[2017-01-10] MEDS: QUEtiapine FUMARATE 200 MG TABLET PO SCH (20:39)
[2017-01-11 07:05] VITALS: BP 122/68
[2017-01-11 08:23] VITALS: BP 115/81
[2017-01-11 08:50] LABS: BASOPHILS # (AUTO) 0.04 K/uL (0.00-0.20); BASOPHILS % (AUTO) 0.3 % (0.0-2.0); EOSINOPHILS # (AUTO) 0.21 K/uL (0.00-0.70); EOSINOPHILS % (AUTO) 1.69 % (1.0-6.0); HEMATOCRIT 41.1 % (41-53); HEMOGLOBIN 13.6 g/dL (13.5-17.5); LYMPHOCYTES # (AUTO) 3.3 K/uL (1.0-4.8); LYMPHOCYTES % (AUTO) 26.3 % (22.0-44.0); MEAN CORPUSCULAR HEMOGLOBIN 26.5 pg (26.0-34.0); MEAN CORPUSCULAR HGB CONC 33.2 G/dL (31.0-37.0); MEAN CORPUSCULAR VOLUME 80 fL (80-100); MONOCYTES % (AUTO) 7.8 % (2.0-9.0); NEUTROPHILS # (AUTO) 8.1 K/uL (1.8-7.7); PLATELET COUNT (AUTO) 326 K/uL (150-450); RED BLOOD CELL COUNT(AUTO) 5.15 MIL/uL (4.50-5.90); RED CELL DISTRIBUTION WIDTH 15.4 % (11.5-14.5); WHITE BLOOD COUNT (AUTO) 12.6 K/uL (4.5-11.0)
[2017-01-11] MEDS: DIVALPROEX SODIUM 500 MG DR TABLET PO SCH ×3 (08:51→16:05)
[2017-01-11] MEDS: BENZTROPINE MESYLATE 1 MG TABLET PO SCH ×2 (08:52→16:05)
[2017-01-11] MEDS: CHOLECALCIFEROL (VIT D3) 1,000 UNITS TABLET PO SCH (08:52)
[2017-01-11 10:25] LABS: ANION GAP 6 mmol/L (8-16); CALCIUM, TOTAL 8.8 mg/dL (8.8-10.5); CARBON DIOXIDE 29 mmol/L (22-29); CHLORIDE 103 mmol/L (98-107); CHOL/HDL RATIO 4.5 (4.2-7.3); CREATININE 0.88 mg/dL (0.60-1.30); GLOMERULAR FILTR. RATE CALC > 60 mL/min (>60); PHOSPHORUS 4.8 mg/dL (2.5-4.9); POTASSIUM 4.2 mmol/L (3.5-5.1); SODIUM SERUM 138 mmol/L (136-145); THYROID STIMULATING HORMONE 4.04 uIU/mL (0.36-3.74); UREA NITROGEN, BLOOD 19 mg/dL (7-18)
[2017-01-11 16:00] VITALS: BP 112/79
[2017-01-11] MEDS: QUEtiapine FUMARATE 200 MG TABLET PO SCH (20:42)
[2017-01-11] MEDS: HALOPERIDOL 10 MG TABLET PO SCH (20:42)
[2017-01-12 07:08] VITALS: BP 121/72
[2017-01-12 08:31] VITALS: BP 121/64
[2017-01-12] MEDS: DIVALPROEX SODIUM 500 MG DR TABLET PO SCH ×3 (08:49→16:23)
[2017-01-12] MEDS: CHOLECALCIFEROL (VIT D3) 1,000 UNITS TABLET PO SCH (08:49)
[2017-01-12] MEDS: BENZTROPINE MESYLATE 1 MG TABLET PO SCH ×2 (08:49→16:23)
[2017-01-12 16:00] VITALS: BP 137/85
[2017-01-12] MEDS: HALOPERIDOL 10 MG TABLET PO SCH (20:33)
[2017-01-12] MEDS: QUEtiapine FUMARATE 200 MG TABLET PO SCH (20:33)
[2017-01-13 06:30] VITALS: BP 142/66
[2017-01-13 08:26] VITALS: BP 143/79
[2017-01-13] MEDS: BENZTROPINE MESYLATE 1 MG TABLET PO SCH ×2 (08:35→16:53)
[2017-01-13] MEDS: DIVALPROEX SODIUM 500 MG DR TABLET PO SCH ×3 (08:35→16:53)
[2017-01-13] MEDS: CHOLECALCIFEROL (VIT D3) 1,000 UNITS TABLET PO SCH (08:35)
[2017-01-13 16:00] VITALS: BP 125/68
[2017-01-13] MEDS: QUEtiapine FUMARATE 200 MG TABLET PO SCH (20:25)
[2017-01-13] MEDS: HALOPERIDOL 10 MG TABLET PO SCH (20:25)
[2017-01-14 06:20] VITALS: BP 125/68
[2017-01-14] MEDS: CHOLECALCIFEROL (VIT D3) 1,000 UNITS TABLET PO SCH (08:46)
[2017-01-14] MEDS: BENZTROPINE MESYLATE 1 MG TABLET PO SCH ×2 (08:46→16:27)
[2017-01-14] MEDS: DIVALPROEX SODIUM 500 MG DR TABLET PO SCH ×3 (08:46→16:27)
[2017-01-14 16:00] VITALS: BP 116/68
[2017-01-14] MEDS: HALOPERIDOL 10 MG TABLET PO SCH (20:32)
[2017-01-14] MEDS: QUEtiapine FUMARATE 200 MG TABLET PO SCH (20:32)
[2017-01-15 08:10] VITALS: BP 123/63
[2017-01-15] MEDS: BENZTROPINE MESYLATE 1 MG TABLET PO SCH ×2 (08:36→16:07)
[2017-01-15] MEDS: DIVALPROEX SODIUM 500 MG DR TABLET PO SCH ×3 (08:36→16:07)
[2017-01-15] MEDS: CHOLECALCIFEROL (VIT D3) 1,000 UNITS TABLET PO SCH (08:36)
[2017-01-15 16:00] VITALS: BP 123/75
[2017-01-15] MEDS: QUEtiapine FUMARATE 200 MG TABLET PO SCH (20:02)
[2017-01-15] MEDS: HALOPERIDOL 10 MG TABLET PO SCH (20:02)
[2017-01-16 06:32] VITALS: BP 100/72
[2017-01-16] MEDS: CHOLECALCIFEROL (VIT D3) 1,000 UNITS TABLET PO SCH (08:16)
[2017-01-16] MEDS: DIVALPROEX SODIUM 500 MG DR TABLET PO SCH ×3 (08:16→16:11)
[2017-01-16] MEDS: BENZTROPINE MESYLATE 1 MG TABLET PO SCH ×2 (08:16→16:11)
[2017-01-16 08:55] VITALS: BP 135/79
[2017-01-16 16:00] VITALS: BP 129/64
[2017-01-16] MEDS: HALOPERIDOL 10 MG TABLET PO SCH (20:15)
[2017-01-16] MEDS: QUEtiapine FUMARATE 200 MG TABLET PO SCH (20:15)
[2017-01-17 07:26] VITALS: BP 142/67
[2017-01-17 08:49] VITALS: BP 120/75
[2017-01-17] MEDS: BENZTROPINE MESYLATE 1 MG TABLET PO SCH ×2 (09:07→16:14)
[2017-01-17] MEDS: CHOLECALCIFEROL (VIT D3) 1,000 UNITS TABLET PO SCH (09:07)
[2017-01-17] MEDS: DIVALPROEX SODIUM 500 MG DR TABLET PO SCH ×3 (09:07→16:14)
[2017-01-17 16:00] VITALS: BP 126/71
[2017-01-17] MEDS: HALOPERIDOL 10 MG TABLET PO SCH (20:42)
[2017-01-17] MEDS: QUEtiapine FUMARATE 200 MG TABLET PO SCH (20:42)
[2017-01-18 06:46] VITALS: BP 103/68
[2017-01-18 09:05] VITALS: BP 135/67
[2017-01-18] MEDS: BENZTROPINE MESYLATE 1 MG TABLET PO SCH ×2 (09:32→16:04)
[2017-01-18] MEDS: CHOLECALCIFEROL (VIT D3) 1,000 UNITS TABLET PO SCH (09:32)
[2017-01-18] MEDS: DIVALPROEX SODIUM 500 MG DR TABLET PO SCH ×3 (09:33→16:04)
[2017-01-18 16:18] VITALS: BP 124/79
[2017-01-18] MEDS: QUEtiapine FUMARATE 200 MG TABLET PO SCH (20:47)
[2017-01-18] MEDS: HALOPERIDOL 10 MG TABLET PO SCH (20:47)
[2017-01-19 07:10] VITALS: BP 133/72
[2017-01-19 08:00] VITALS: BP 130/69
[2017-01-19] MEDS: CHOLECALCIFEROL (VIT D3) 1,000 UNITS TABLET PO SCH (08:47)
[2017-01-19] MEDS: BENZTROPINE MESYLATE 1 MG TABLET PO SCH ×2 (08:47→16:07)
[2017-01-19] MEDS: DIVALPROEX SODIUM 500 MG DR TABLET PO SCH ×3 (08:47→16:07)
[2017-01-19 16:00] VITALS: BP 120/72
[2017-01-19] MEDS: QUEtiapine FUMARATE 200 MG TABLET PO SCH (20:16)
[2017-01-19] MEDS: HALOPERIDOL 10 MG TABLET PO SCH (20:16)
[2017-01-20 08:37] VITALS: BP 125/73
[2017-01-20] MEDS: DIVALPROEX SODIUM 500 MG DR TABLET PO SCH ×3 (08:57→16:17)
[2017-01-20] MEDS: CHOLECALCIFEROL (VIT D3) 1,000 UNITS TABLET PO SCH (08:57)
[2017-01-20] MEDS: BENZTROPINE MESYLATE 1 MG TABLET PO SCH ×2 (08:58→16:17)
[2017-01-20 16:00] VITALS: BP 110/69
[2017-01-20] MEDS: QUEtiapine FUMARATE 200 MG TABLET PO SCH (20:20)
[2017-01-20] MEDS: HALOPERIDOL 10 MG TABLET PO SCH (20:20)
[2017-01-21 05:36] VITALS: BP 114/71
[2017-01-21 08:13] LABS: BASOPHILS # (AUTO) 0.03 K/uL (0.00-0.20); BASOPHILS % (AUTO) 0.3 % (0.0-2.0); EOSINOPHILS # (AUTO) 0.15 K/uL (0.00-0.70); EOSINOPHILS % (AUTO) 1.35 % (1.0-6.0); HEMATOCRIT 38.9 % (41-53); HEMOGLOBIN 12.8 g/dL (13.5-17.5); LYMPHOCYTES # (AUTO) 3.1 K/uL (1.0-4.8); LYMPHOCYTES % (AUTO) 29.1 % (22.0-44.0); MEAN CORPUSCULAR HEMOGLOBIN 26.8 pg (26.0-34.0); MEAN CORPUSCULAR VOLUME 81 fL (80-100); MONOCYTES # (AUTO) 0.9 K/uL (0.1-1.0); MONOCYTES % (AUTO) 7.9 % (2.0-9.0); NEUTROPHILS # (AUTO) 6.6 K/uL (1.8-7.7); NEUTROPHILS % (AUTO) 61.4 % (40.0-70.0); PLATELET COUNT (AUTO) 301 K/uL (150-450); RED CELL DISTRIBUTION WIDTH 15.1 % (11.5-14.5); WHITE BLOOD COUNT (AUTO) 10.8 K/uL (4.5-11.0)
[2017-01-21 08:23] VITALS: BP 122/69
[2017-01-21] MEDS: BENZTROPINE MESYLATE 1 MG TABLET PO SCH ×2 (09:07→16:24)
[2017-01-21] MEDS: DIVALPROEX SODIUM 500 MG DR TABLET PO SCH ×3 (09:07→16:24)
[2017-01-21] MEDS: CHOLECALCIFEROL (VIT D3) 1,000 UNITS TABLET PO SCH (09:07)
[2017-01-21 09:15] LABS: ANION GAP 6 mmol/L (8-16); CALCIUM, TOTAL 8.8 mg/dL (8.8-10.5); CARBON DIOXIDE 31 mmol/L (22-29); CHLORIDE 103 mmol/L (98-107); CHOL/HDL RATIO 4.8 (4.2-7.3); CREATININE 0.86 mg/dL (0.60-1.30); GLOMERULAR FILTR. RATE CALC > 60 mL/min (>60); PHOSPHORUS 4.8 mg/dL (2.5-4.9); POTASSIUM 4.8 mmol/L (3.5-5.1); SODIUM SERUM 140 mmol/L (136-145); THYROID STIMULATING HORMONE 3.68 uIU/mL (0.36-3.74); UREA NITROGEN, BLOOD 14 mg/dL (7-18)
[2017-01-21] MEDS: MAGNESIUM OXIDE 400 MG TABLET PO SCH ×4 (10:19→21:16)
[2017-01-21 16:03] VITALS: BP 133/74
[2017-01-21] MEDS: HALOPERIDOL 10 MG TABLET PO SCH (20:13)
[2017-01-21] MEDS: QUEtiapine FUMARATE 200 MG TABLET PO SCH (20:13)
[2017-01-22 06:34] VITALS: BP 105/73
[2017-01-22 08:38] VITALS: BP 116/66
[2017-01-22] MEDS: CHOLECALCIFEROL (VIT D3) 1,000 UNITS TABLET PO SCH (08:39)
[2017-01-22] MEDS: MAGNESIUM OXIDE 400 MG TABLET PO SCH ×4 (08:39→20:17)
[2017-01-22] MEDS: DIVALPROEX SODIUM 500 MG DR TABLET PO SCH ×3 (08:39→16:14)
[2017-01-22] MEDS: BENZTROPINE MESYLATE 1 MG TABLET PO SCH ×2 (08:39→16:14)
[2017-01-22 16:00] VITALS: BP 129/74
[2017-01-22] MEDS: QUEtiapine FUMARATE 200 MG TABLET PO SCH (20:17)
[2017-01-22] MEDS: HALOPERIDOL 10 MG TABLET PO SCH (20:17)
[2017-01-23] MEDS: FERROUS SULFATE 325 MG EC TABLET PO SCH ×2 (06:38→17:30)
[2017-01-23 07:19] VITALS: BP 113/71
[2017-01-23 08:29] VITALS: BP 122/78
[2017-01-23] MEDS: BENZTROPINE MESYLATE 1 MG TABLET PO SCH ×2 (09:25→17:29)
[2017-01-23] MEDS: MAGNESIUM OXIDE 400 MG TABLET PO SCH ×4 (09:25→21:16)
[2017-01-23] MEDS: DIVALPROEX SODIUM 500 MG DR TABLET PO SCH ×3 (09:25→17:30)
[2017-01-23] MEDS: CHOLECALCIFEROL (VIT D3) 1,000 UNITS TABLET PO SCH (09:25)
[2017-01-23 16:00] VITALS: BP 119/70
[2017-01-23] MEDS: HALOPERIDOL 10 MG TABLET PO SCH (20:23)
[2017-01-23] MEDS: QUEtiapine FUMARATE 200 MG TABLET PO SCH (20:23)
[2017-01-24] MEDS: FERROUS SULFATE 325 MG EC TABLET PO SCH ×2 (06:07→16:14)
[2017-01-24] MEDS: MAGNESIUM OXIDE 400 MG TABLET PO SCH ×4 (08:46→20:09)
[2017-01-24] MEDS: BENZTROPINE MESYLATE 1 MG TABLET PO SCH ×2 (08:46→16:14)
[2017-01-24] MEDS: CHOLECALCIFEROL (VIT D3) 1,000 UNITS TABLET PO SCH (08:46)
[2017-01-24] MEDS: DIVALPROEX SODIUM 500 MG DR TABLET PO SCH ×3 (08:46→16:14)
[2017-01-24 16:11] VITALS: BP 137/76
[2017-01-24] MEDS: QUEtiapine FUMARATE 200 MG TABLET PO SCH (20:09)
[2017-01-24] MEDS: HALOPERIDOL 10 MG TABLET PO SCH (20:09)
[2017-01-25 05:31] VITALS: BP 126/78
[2017-01-25] MEDS: FERROUS SULFATE 325 MG EC TABLET PO SCH ×2 (06:32→16:06)
[2017-01-25] MEDS: CHOLECALCIFEROL (VIT D3) 1,000 UNITS TABLET PO SCH (09:16)
[2017-01-25] MEDS: MAGNESIUM OXIDE 400 MG TABLET PO SCH ×4 (09:16→20:36)
[2017-01-25] MEDS: BENZTROPINE MESYLATE 1 MG TABLET PO SCH ×2 (09:16→16:06)
[2017-01-25] MEDS: DIVALPROEX SODIUM 500 MG DR TABLET PO SCH ×3 (09:16→16:06)
[2017-01-25 09:52] VITALS: BP 122/65
[2017-01-25] MEDS: HALOPERIDOL 5 MG TABLET PO PRN (13:53)
[2017-01-25 16:00] VITALS: BP 130/84
[2017-01-25] MEDS: HALOPERIDOL 10 MG TABLET PO SCH (20:36)
[2017-01-25] MEDS: QUEtiapine FUMARATE 200 MG TABLET PO SCH (20:36)
[2017-01-26] MEDS: FERROUS SULFATE 325 MG EC TABLET PO SCH ×2 (06:43→16:22)
[2017-01-26 07:19] VITALS: BP 140/73
[2017-01-26] MEDS: CHOLECALCIFEROL (VIT D3) 1,000 UNITS TABLET PO SCH (08:53)
[2017-01-26] MEDS: BENZTROPINE MESYLATE 1 MG TABLET PO SCH ×2 (08:54→16:22)
[2017-01-26] MEDS: DIVALPROEX SODIUM 500 MG DR TABLET PO SCH ×3 (08:54→16:22)
[2017-01-26 16:15] VITALS: BP 125/75
[2017-01-26] MEDS: HALOPERIDOL 10 MG TABLET PO SCH (20:39)
[2017-01-26] MEDS: QUEtiapine FUMARATE 200 MG TABLET PO SCH (20:39)
[2017-01-27 06:20] VITALS: BP 122/71
[2017-01-27] MEDS: FERROUS SULFATE 325 MG EC TABLET PO SCH ×2 (06:24→16:44)
[2017-01-27] MEDS: DIVALPROEX SODIUM 500 MG DR TABLET PO SCH ×3 (08:36→16:44)
[2017-01-27] MEDS: CHOLECALCIFEROL (VIT D3) 1,000 UNITS TABLET PO SCH (08:36)
[2017-01-27] MEDS: BENZTROPINE MESYLATE 1 MG TABLET PO SCH ×2 (08:36→16:44)
[2017-01-27 08:45] VITALS: BP 117/68
[2017-01-27 16:00] VITALS: BP 129/71
[2017-01-27] MEDS: QUEtiapine FUMARATE 200 MG TABLET PO SCH (20:40)
[2017-01-27] MEDS: HALOPERIDOL 10 MG TABLET PO SCH (20:41)
[2017-01-28 06:10] VITALS: BP 108/69
[2017-01-28] MEDS: FERROUS SULFATE 325 MG EC TABLET PO SCH ×2 (06:46→16:02)
[2017-01-28 08:28] VITALS: BP 124/69
[2017-01-28] MEDS: BENZTROPINE MESYLATE 1 MG TABLET PO SCH ×2 (08:49→16:02)
[2017-01-28] MEDS: DIVALPROEX SODIUM 500 MG DR TABLET PO SCH ×3 (08:49→16:02)
[2017-01-28] MEDS: CHOLECALCIFEROL (VIT D3) 1,000 UNITS TABLET PO SCH (08:49)
[2017-01-28 16:00] VITALS: BP 130/87
[2017-01-28] MEDS: HALOPERIDOL 10 MG TABLET PO SCH (20:14)
[2017-01-28] MEDS: QUEtiapine FUMARATE 200 MG TABLET PO SCH (20:14)
[2017-01-29] MEDS: FERROUS SULFATE 325 MG EC TABLET PO SCH ×2 (06:18→16:03)
[2017-01-29 06:40] VITALS: BP 115/63
[2017-01-29 08:41] VITALS: BP 113/62
[2017-01-29] MEDS: BENZTROPINE MESYLATE 1 MG TABLET PO SCH ×2 (08:49→16:02)
[2017-01-29] MEDS: DIVALPROEX SODIUM 500 MG DR TABLET PO SCH ×3 (08:49→16:03)
[2017-01-29] MEDS: CHOLECALCIFEROL (VIT D3) 1,000 UNITS TABLET PO SCH (08:49)
[2017-01-29] MEDS: QUEtiapine FUMARATE 200 MG TABLET PO SCH (20:07)
[2017-01-29] MEDS: HALOPERIDOL 10 MG TABLET PO SCH (20:07)
[2017-01-30] MEDS: FERROUS SULFATE 325 MG EC TABLET PO SCH ×2 (06:18→16:07)
[2017-01-30 06:48] VITALS: BP 110/74
[2017-01-30] MEDS: CHOLECALCIFEROL (VIT D3) 1,000 UNITS TABLET PO SCH (09:24)
[2017-01-30] MEDS: MAGNESIUM OXIDE 400 MG TABLET PO SCH ×2 (09:27→16:11)
[2017-01-30] MEDS: BENZTROPINE MESYLATE 1 MG TABLET PO SCH ×2 (09:27→16:07)
[2017-01-30] MEDS: DIVALPROEX SODIUM 500 MG DR TABLET PO SCH ×3 (09:27→16:07)
[2017-01-30 16:26] VITALS: BP 128/87
[2017-01-30] MEDS: HALOPERIDOL 10 MG TABLET PO SCH (20:53)
[2017-01-30] MEDS: QUEtiapine FUMARATE 200 MG TABLET PO SCH (20:53)
[2017-01-31] MEDS: FERROUS SULFATE 325 MG EC TABLET PO SCH ×2 (06:21→16:31)
[2017-01-31 07:02] VITALS: BP 121/79
[2017-01-31 08:49] LABS: ALANINE AMINOTRANSFERASE 15 U/L (12-78); ALBUMIN 3.9 g/dL (3.4-5.0); ANION GAP 11 mmol/L (8-16); ASPARTATE AMINOTRANSFERASE 10 U/L (15-37); BILIRUBIN,TOTAL 0.2 mg/dL (0.1-1.0); CALCIUM, TOTAL 9.3 mg/dL (8.8-10.5); CARBON DIOXIDE 28 mmol/L (22-29); CHLORIDE 102 mmol/L (98-107); CREATININE 0.91 mg/dL (0.60-1.30); GLOMERULAR FILTR. RATE CALC > 60 mL/min (>60); POTASSIUM 4.7 mmol/L (3.5-5.1); SODIUM SERUM 141 mmol/L (136-145); TOTAL PROTEIN, SERUM 7.7 g/dL (6.4-8.2); UREA NITROGEN, BLOOD 14 mg/dL (7-18)
[2017-01-31] MEDS: MAGNESIUM OXIDE 400 MG TABLET PO SCH ×2 (08:51→16:31)
[2017-01-31] MEDS: BENZTROPINE MESYLATE 1 MG TABLET PO SCH ×2 (08:51→16:32)
[2017-01-31] MEDS: DIVALPROEX SODIUM 500 MG DR TABLET PO SCH ×3 (08:51→16:31)
[2017-01-31] MEDS: CHOLECALCIFEROL (VIT D3) 1,000 UNITS TABLET PO SCH (08:51)
[2017-01-31 09:08] VITALS: BP 120/74
[2017-01-31 16:30] VITALS: BP 155/72
[2017-01-31] MEDS: HALOPERIDOL 10 MG TABLET PO SCH (20:12)
[2017-01-31] MEDS: QUEtiapine FUMARATE 200 MG TABLET PO SCH (20:12)
[2017-02-01] MEDS: FERROUS SULFATE 325 MG EC TABLET PO SCH ×2 (06:38→16:57)
[2017-02-01 06:49] VITALS: BP 118/77
[2017-02-01] MEDS: BENZTROPINE MESYLATE 1 MG TABLET PO SCH ×2 (09:15→16:57)
[2017-02-01] MEDS: CHOLECALCIFEROL (VIT D3) 1,000 UNITS TABLET PO SCH (09:15)
[2017-02-01] MEDS: DIVALPROEX SODIUM 500 MG DR TABLET PO SCH ×3 (09:15→16:57)
[2017-02-01 16:22] VITALS: BP 115/70
[2017-02-01] MEDS: QUEtiapine FUMARATE 200 MG TABLET PO SCH (20:24)
[2017-02-01] MEDS: HALOPERIDOL 10 MG TABLET PO SCH (20:24)
[2017-02-02 01:40] VITALS: BP 126/75
[2017-02-02] MEDS: FERROUS SULFATE 325 MG EC TABLET PO SCH ×2 (06:09→16:57)
[2017-02-02] MEDS: BENZTROPINE MESYLATE 1 MG TABLET PO SCH ×2 (08:39→16:56)
[2017-02-02] MEDS: CHOLECALCIFEROL (VIT D3) 1,000 UNITS TABLET PO SCH (08:39)
[2017-02-02] MEDS: DIVALPROEX SODIUM 500 MG DR TABLET PO SCH ×3 (08:39→16:57)
[2017-02-02] MEDS: HALOPERIDOL 5 MG TABLET PO PRN (11:05)
[2017-02-02 16:00] VITALS: BP 126/67
[2017-02-02] MEDS: QUEtiapine FUMARATE 200 MG TABLET PO SCH (20:13)
[2017-02-02] MEDS: HALOPERIDOL 10 MG TABLET PO SCH (20:13)
[2017-02-03] MEDS: FERROUS SULFATE 325 MG EC TABLET PO SCH ×2 (06:15→16:12)
[2017-02-03 06:59] VITALS: BP 123/65
[2017-02-03 09:21] LABS: ANION GAP 13 mmol/L (8-16); CALCIUM, TOTAL 9.1 mg/dL (8.8-10.5); CARBON DIOXIDE 26 mmol/L (22-29); CHLORIDE 101 mmol/L (98-107); CREATININE 0.95 mg/dL (0.60-1.30); GLOMERULAR FILTR. RATE CALC > 60 mL/min (>60); POTASSIUM 4.6 mmol/L (3.5-5.1); SODIUM SERUM 140 mmol/L (136-145); UREA NITROGEN, BLOOD 15 mg/dL (7-18)
[2017-02-03] MEDS: CHOLECALCIFEROL (VIT D3) 1,000 UNITS TABLET PO SCH (09:31)
[2017-02-03] MEDS: DIVALPROEX SODIUM 500 MG DR TABLET PO SCH ×3 (09:31→16:12)
[2017-02-03] MEDS: BENZTROPINE MESYLATE 1 MG TABLET PO SCH ×2 (09:31→16:12)
[2017-02-03 16:52] VITALS: BP 133/77
[2017-02-03] MEDS: QUEtiapine FUMARATE 200 MG TABLET PO SCH (20:01)
[2017-02-03] MEDS: HALOPERIDOL 10 MG TABLET PO SCH (20:01)
[2017-02-03 20:02] VITALS: BP 128/72
[2017-02-03] MEDS: IBUPROFEN 600 MG TABLET PO PRN (20:02)
[2017-02-04] MEDS: FERROUS SULFATE 325 MG EC TABLET PO SCH ×2 (06:28→17:02)
[2017-02-04 07:09] VITALS: BP 119/67
[2017-02-04] MEDS: BENZTROPINE MESYLATE 1 MG TABLET PO SCH ×2 (09:14→17:02)
[2017-02-04] MEDS: CHOLECALCIFEROL (VIT D3) 1,000 UNITS TABLET PO SCH (09:14)
[2017-02-04] MEDS: DIVALPROEX SODIUM 500 MG DR TABLET PO SCH ×3 (09:14→17:02)
[2017-02-04 16:07] VITALS: BP 138/73
[2017-02-04] MEDS: HALOPERIDOL 10 MG TABLET PO SCH (20:16)
[2017-02-04] MEDS: QUEtiapine FUMARATE 200 MG TABLET PO SCH (20:16)
[2017-02-05] MEDS: FERROUS SULFATE 325 MG EC TABLET PO SCH ×2 (06:12→16:57)
[2017-02-05] MEDS: CHOLECALCIFEROL (VIT D3) 1,000 UNITS TABLET PO SCH (08:14)
[2017-02-05] MEDS: BENZTROPINE MESYLATE 1 MG TABLET PO SCH ×2 (08:14→16:57)
[2017-02-05] MEDS: DIVALPROEX SODIUM 500 MG DR TABLET PO SCH ×3 (08:14→16:57)
[2017-02-05 08:34] VITALS: BP 113/59
[2017-02-05 16:12] VITALS: BP 125/68
[2017-02-05] MEDS: QUEtiapine FUMARATE 200 MG TABLET PO SCH (20:11)
[2017-02-05] MEDS: HALOPERIDOL 10 MG TABLET PO SCH (20:11)
[2017-02-06 02:57] VITALS: BP 127/77
[2017-02-06] MEDS: FERROUS SULFATE 325 MG EC TABLET PO SCH ×2 (07:01→17:48)
[2017-02-06 08:16] LABS: ANION GAP 12 mmol/L (8-16); CALCIUM, TOTAL 9.1 mg/dL (8.8-10.5); CARBON DIOXIDE 28 mmol/L (22-29); CHLORIDE 102 mmol/L (98-107); CREATININE 0.78 mg/dL (0.60-1.30); GLOMERULAR FILTR. RATE CALC > 60 mL/min (>60); POTASSIUM 4.6 mmol/L (3.5-5.1); SODIUM SERUM 142 mmol/L (136-145); UREA NITROGEN, BLOOD 17 mg/dL (7-18)
[2017-02-06 08:30] VITALS: BP 122/69
[2017-02-06] MEDS: CHOLECALCIFEROL (VIT D3) 1,000 UNITS TABLET PO SCH (09:41)
[2017-02-06] MEDS: DIVALPROEX SODIUM 500 MG DR TABLET PO SCH ×3 (09:41→17:47)
[2017-02-06] MEDS: BENZTROPINE MESYLATE 1 MG TABLET PO SCH ×2 (09:41→17:47)
[2017-02-06 16:00] VITALS: BP 126/79
[2017-02-06] MEDS: HALOPERIDOL 10 MG TABLET PO SCH (20:43)
[2017-02-06] MEDS: QUEtiapine FUMARATE 200 MG TABLET PO SCH (20:43)
[2017-02-07 00:24] VITALS: BP 116/74
[2017-02-07] MEDS: FERROUS SULFATE 325 MG EC TABLET PO SCH ×2 (06:38→16:53)
[2017-02-07 08:22] VITALS: BP 125/75
[2017-02-07] MEDS: BENZTROPINE MESYLATE 1 MG TABLET PO SCH ×2 (09:35→16:53)
[2017-02-07] MEDS: CHOLECALCIFEROL (VIT D3) 1,000 UNITS TABLET PO SCH (09:35)
[2017-02-07] MEDS: DIVALPROEX SODIUM 500 MG DR TABLET PO SCH ×3 (09:35→16:53)
[2017-02-07 16:00] VITALS: BP 95/68
[2017-02-07] MEDS: HALOPERIDOL 10 MG TABLET PO SCH (20:34)
[2017-02-07] MEDS: QUEtiapine FUMARATE 200 MG TABLET PO SCH (20:34)
[2017-02-08 01:00] VITALS: BP 114/68
[2017-02-08] MEDS: FERROUS SULFATE 325 MG EC TABLET PO SCH ×2 (06:58→16:42)
[2017-02-08 08:07] VITALS: BP 122/65
[2017-02-08 08:24] LABS: ALANINE AMINOTRANSFERASE 18 U/L (12-78); ALBUMIN 3.3 g/dL (3.4-5.0); ANION GAP 7 mmol/L (8-16); ASPARTATE AMINOTRANSFERASE 7 U/L (15-37); BILIRUBIN,TOTAL 0.2 mg/dL (0.1-1.0); CALCIUM, TOTAL 8.6 mg/dL (8.8-10.5); CARBON DIOXIDE 29 mmol/L (22-29); CHLORIDE 105 mmol/L (98-107); CREATININE 0.85 mg/dL (0.60-1.30); GLOMERULAR FILTR. RATE CALC > 60 mL/min (>60); POTASSIUM 4.5 mmol/L (3.5-5.1); SODIUM SERUM 141 mmol/L (136-145); TOTAL PROTEIN, SERUM 6.9 g/dL (6.4-8.2); UREA NITROGEN, BLOOD 22 mg/dL (7-18)
[2017-02-08] MEDS: CHOLECALCIFEROL (VIT D3) 1,000 UNITS TABLET PO SCH (08:39)
[2017-02-08] MEDS: BENZTROPINE MESYLATE 1 MG TABLET PO SCH ×2 (08:39→16:42)
[2017-02-08] MEDS: DIVALPROEX SODIUM 500 MG DR TABLET PO SCH ×3 (08:39→16:42)
[2017-02-08 17:04] VITALS: BP 149/57
[2017-02-08] MEDS: HALOPERIDOL 10 MG TABLET PO SCH (20:26)
[2017-02-08] MEDS: QUEtiapine FUMARATE 200 MG TABLET PO SCH (20:26)
[2017-02-09 00:56] VITALS: BP 120/65
[2017-02-09] MEDS: FERROUS SULFATE 325 MG EC TABLET PO SCH ×2 (07:22→17:49)
[2017-02-09] MEDS: CHOLECALCIFEROL (VIT D3) 1,000 UNITS TABLET PO SCH (08:55)
[2017-02-09] MEDS: DIVALPROEX SODIUM 500 MG DR TABLET PO SCH ×3 (08:55→17:49)
[2017-02-09] MEDS: BENZTROPINE MESYLATE 1 MG TABLET PO SCH ×2 (08:55→17:49)
[2017-02-09 16:19] VITALS: BP 115/65
[2017-02-09] MEDS: QUEtiapine FUMARATE 200 MG TABLET PO SCH (21:15)
[2017-02-09] MEDS: HALOPERIDOL 10 MG TABLET PO SCH (21:15)
[2017-02-10] MEDS: FERROUS SULFATE 325 MG EC TABLET PO SCH ×2 (06:56→16:35)
[2017-02-10 07:56] LABS: ALANINE AMINOTRANSFERASE 20 U/L (12-78); ALBUMIN 3.4 g/dL (3.4-5.0); ANION GAP 8 mmol/L (8-16); ASPARTATE AMINOTRANSFERASE 10 U/L (15-37); BILIRUBIN,TOTAL 0.3 mg/dL (0.1-1.0); CALCIUM, TOTAL 8.8 mg/dL (8.8-10.5); CARBON DIOXIDE 30 mmol/L (22-29); CHLORIDE 104 mmol/L (98-107); CREATININE 0.79 mg/dL (0.60-1.30); GLOMERULAR FILTR. RATE CALC > 60 mL/min (>60); POTASSIUM 4.8 mmol/L (3.5-5.1); SODIUM SERUM 142 mmol/L (136-145); TOTAL PROTEIN, SERUM 6.9 g/dL (6.4-8.2); UREA NITROGEN, BLOOD 16 mg/dL (7-18)
[2017-02-10 08:00] VITALS: BP 132/66
[2017-02-10] MEDS: DIVALPROEX SODIUM 500 MG DR TABLET PO SCH ×3 (08:39→16:35)
[2017-02-10] MEDS: CHOLECALCIFEROL (VIT D3) 1,000 UNITS TABLET PO SCH (08:39)
[2017-02-10] MEDS: BENZTROPINE MESYLATE 1 MG TABLET PO SCH ×2 (08:39→16:35)
[2017-02-10 16:00] VITALS: BP 134/77
[2017-02-10] MEDS: QUEtiapine FUMARATE 200 MG TABLET PO SCH (20:36)
[2017-02-10] MEDS: HALOPERIDOL 10 MG TABLET PO SCH (20:37)
[2017-02-11 00:37] VITALS: BP 126/85
[2017-02-11 06:20] VITALS: BP 100/63
[2017-02-11] MEDS: FERROUS SULFATE 325 MG EC TABLET PO SCH ×2 (06:30→16:11)
[2017-02-11 08:08] VITALS: BP 134/76
[2017-02-11] MEDS: BENZTROPINE MESYLATE 1 MG TABLET PO SCH ×2 (09:16→16:11)
[2017-02-11] MEDS: CHOLECALCIFEROL (VIT D3) 1,000 UNITS TABLET PO SCH (09:16)
[2017-02-11] MEDS: DIVALPROEX SODIUM 500 MG DR TABLET PO SCH ×3 (09:17→16:11)
[2017-02-11] MEDS: MUPIROCIN CALCIUM 2% 22 GM OINTMENT TP SCH (16:12)
[2017-02-11 16:14] VITALS: BP 107/65
[2017-02-11] MEDS: QUEtiapine FUMARATE 200 MG TABLET PO SCH (20:41)
[2017-02-11] MEDS: HALOPERIDOL 10 MG TABLET PO SCH (20:41)
[2017-02-12 00:34] VITALS: BP 134/85
[2017-02-12] MEDS: FERROUS SULFATE 325 MG EC TABLET PO SCH ×2 (07:04→16:38)
[2017-02-12 08:09] VITALS: BP 128/78
[2017-02-12] MEDS: CHOLECALCIFEROL (VIT D3) 1,000 UNITS TABLET PO SCH (08:57)
[2017-02-12] MEDS: BENZTROPINE MESYLATE 1 MG TABLET PO SCH ×2 (08:57→16:38)
[2017-02-12] MEDS: DIVALPROEX SODIUM 500 MG DR TABLET PO SCH ×3 (08:57→16:38)
[2017-02-12] MEDS: MUPIROCIN CALCIUM 2% 22 GM OINTMENT TP SCH ×2 (08:58→16:56)
[2017-02-12 16:11] VITALS: BP 120/69
[2017-02-12] MEDS: QUEtiapine FUMARATE 200 MG TABLET PO SCH (20:18)
[2017-02-12] MEDS: HALOPERIDOL 10 MG TABLET PO SCH (20:18)
[2017-02-13 04:26] VITALS: BP 115/82
[2017-02-13] MEDS: FERROUS SULFATE 325 MG EC TABLET PO SCH ×2 (07:08→16:21)
[2017-02-13] MEDS: CHOLECALCIFEROL (VIT D3) 1,000 UNITS TABLET PO SCH (08:56)
[2017-02-13] MEDS: BENZTROPINE MESYLATE 1 MG TABLET PO SCH ×2 (08:57→16:20)
[2017-02-13] MEDS: MUPIROCIN CALCIUM 2% 22 GM OINTMENT TP SCH ×2 (08:57→16:19)
[2017-02-13] MEDS: DIVALPROEX SODIUM 500 MG DR TABLET PO SCH ×3 (08:57→16:20)
[2017-02-13 09:11] VITALS: BP 100/67
[2017-02-13 16:35] VITALS: BP 143/75
[2017-02-13] MEDS: MAGNESIUM OXIDE 400 MG TABLET PO SCH (17:21)
[2017-02-13] MEDS: HALOPERIDOL 10 MG TABLET PO SCH (20:04)
[2017-02-13] MEDS: QUEtiapine FUMARATE 200 MG TABLET PO SCH (20:04)
[2017-02-14 05:55] VITALS: BP 127/74
[2017-02-14] MEDS: FERROUS SULFATE 325 MG EC TABLET PO SCH ×2 (06:38→16:22)
[2017-02-14 08:27] VITALS: BP 124/72
[2017-02-14] MEDS: CHOLECALCIFEROL (VIT D3) 1,000 UNITS TABLET PO SCH (09:10)
[2017-02-14] MEDS: MAGNESIUM OXIDE 400 MG TABLET PO SCH ×2 (09:10→16:23)
[2017-02-14] MEDS: BENZTROPINE MESYLATE 1 MG TABLET PO SCH ×2 (09:10→16:23)
[2017-02-14] MEDS: DIVALPROEX SODIUM 500 MG DR TABLET PO SCH ×3 (09:10→16:22)
[2017-02-14] MEDS: MUPIROCIN CALCIUM 2% 22 GM OINTMENT TP SCH ×2 (09:10→16:23)
[2017-02-14 16:37] VITALS: BP 125/64
[2017-02-14] MEDS: HALOPERIDOL 10 MG TABLET PO SCH (20:46)
[2017-02-14] MEDS: QUEtiapine FUMARATE 200 MG TABLET PO SCH (20:46)
[2017-02-15 05:45] VITALS: BP 102/59
[2017-02-15] MEDS: FERROUS SULFATE 325 MG EC TABLET PO SCH ×2 (07:11→16:24)
[2017-02-15] MEDS: DIVALPROEX SODIUM 500 MG DR TABLET PO SCH ×3 (10:16→16:25)
[2017-02-15] MEDS: MAGNESIUM OXIDE 400 MG TABLET PO SCH ×2 (10:16→16:25)
[2017-02-15] MEDS: CHOLECALCIFEROL (VIT D3) 1,000 UNITS TABLET PO SCH (10:16)
[2017-02-15] MEDS: MUPIROCIN CALCIUM 2% 22 GM OINTMENT TP SCH ×2 (10:16→16:24)
[2017-02-15] MEDS: BENZTROPINE MESYLATE 1 MG TABLET PO SCH ×2 (10:16→16:25)
[2017-02-15 16:05] VITALS: BP 126/85
[2017-02-15] MEDS: QUEtiapine FUMARATE 200 MG TABLET PO SCH (20:42)
[2017-02-15] MEDS: HALOPERIDOL 10 MG TABLET PO SCH (20:42)
[2017-02-16 06:40] VITALS: BP 135/76
[2017-02-16] MEDS: FERROUS SULFATE 325 MG EC TABLET PO SCH ×2 (06:53→17:21)
[2017-02-16] MEDS: MAGNESIUM OXIDE 400 MG TABLET PO SCH ×2 (09:00→17:21)
[2017-02-16] MEDS: BENZTROPINE MESYLATE 1 MG TABLET PO SCH ×2 (09:00→17:21)
[2017-02-16] MEDS: DIVALPROEX SODIUM 500 MG DR TABLET PO SCH ×3 (09:00→17:22)
[2017-02-16] MEDS: CHOLECALCIFEROL (VIT D3) 1,000 UNITS TABLET PO SCH (09:00)
[2017-02-16 16:00] VITALS: BP 135/75
[2017-02-16] MEDS: HALOPERIDOL 10 MG TABLET PO SCH (21:36)
[2017-02-16] MEDS: QUEtiapine FUMARATE 200 MG TABLET PO SCH (21:36)
[2017-02-17 01:39] VITALS: BP 130/77
[2017-02-17] MEDS: FERROUS SULFATE 325 MG EC TABLET PO SCH ×2 (06:38→16:44)
[2017-02-17] MEDS: BENZTROPINE MESYLATE 1 MG TABLET PO SCH ×2 (08:56→16:44)
[2017-02-17] MEDS: DIVALPROEX SODIUM 500 MG DR TABLET PO SCH ×3 (08:56→16:44)
[2017-02-17] MEDS: MAGNESIUM OXIDE 400 MG TABLET PO SCH ×2 (08:56→16:44)
[2017-02-17] MEDS: CHOLECALCIFEROL (VIT D3) 1,000 UNITS TABLET PO SCH (08:56)
[2017-02-17 16:18] VITALS: BP 132/80
[2017-02-17] MEDS: HALOPERIDOL 10 MG TABLET PO SCH (20:01)
[2017-02-17] MEDS: QUEtiapine FUMARATE 200 MG TABLET PO SCH (20:01)
[2017-02-18 00:08] VITALS: BP 123/75
[2017-02-18] MEDS: FERROUS SULFATE 325 MG EC TABLET PO SCH ×2 (07:34→16:38)
[2017-02-18 08:19] VITALS: BP 132/71
[2017-02-18] MEDS: BENZTROPINE MESYLATE 1 MG TABLET PO SCH ×2 (08:44→16:38)
[2017-02-18] MEDS: DIVALPROEX SODIUM 500 MG DR TABLET PO SCH ×3 (08:44→16:38)
[2017-02-18] MEDS: MAGNESIUM OXIDE 400 MG TABLET PO SCH ×2 (08:45→16:38)
[2017-02-18] MEDS: CHOLECALCIFEROL (VIT D3) 1,000 UNITS TABLET PO SCH (08:45)
[2017-02-18 16:38] VITALS: BP 135/80
[2017-02-18] MEDS: QUEtiapine FUMARATE 200 MG TABLET PO SCH (20:02)
[2017-02-18] MEDS: HALOPERIDOL 10 MG TABLET PO SCH (20:03)
[2017-02-19 06:00] VITALS: BP 104/68
[2017-02-19] MEDS: FERROUS SULFATE 325 MG EC TABLET PO SCH ×2 (06:20→17:04)
[2017-02-19 08:09] VITALS: BP 142/78
[2017-02-19] MEDS: DIVALPROEX SODIUM 500 MG DR TABLET PO SCH ×3 (09:31→17:04)
[2017-02-19] MEDS: BENZTROPINE MESYLATE 1 MG TABLET PO SCH ×2 (09:31→17:04)
[2017-02-19] MEDS: MAGNESIUM OXIDE 400 MG TABLET PO SCH ×2 (09:31→17:04)
[2017-02-19] MEDS: CHOLECALCIFEROL (VIT D3) 1,000 UNITS TABLET PO SCH (09:31)
[2017-02-19 16:14] VITALS: BP 136/87
[2017-02-19] MEDS: QUEtiapine FUMARATE 200 MG TABLET PO SCH (20:08)
[2017-02-19] MEDS: HALOPERIDOL 10 MG TABLET PO SCH (20:08)
[2017-02-20 00:51] VITALS: BP 108/74
[2017-02-20] MEDS: FERROUS SULFATE 325 MG EC TABLET PO SCH ×2 (07:06→17:19)
[2017-02-20 08:23] VITALS: BP 118/63
[2017-02-20] MEDS: MAGNESIUM OXIDE 400 MG TABLET PO SCH ×2 (08:48→17:19)
[2017-02-20] MEDS: CHOLECALCIFEROL (VIT D3) 1,000 UNITS TABLET PO SCH (08:48)
[2017-02-20] MEDS: BENZTROPINE MESYLATE 1 MG TABLET PO SCH ×2 (08:48→17:19)
[2017-02-20] MEDS: DIVALPROEX SODIUM 500 MG DR TABLET PO SCH ×3 (08:52→17:19)
[2017-02-20 16:00] VITALS: BP 135/82
[2017-02-20] MEDS: QUEtiapine FUMARATE 200 MG TABLET PO SCH (20:15)
[2017-02-20] MEDS: HALOPERIDOL 10 MG TABLET PO SCH (20:21)
[2017-02-21 00:15] VITALS: BP 118/68
[2017-02-21] MEDS: FERROUS SULFATE 325 MG EC TABLET PO SCH ×2 (06:36→16:28)
[2017-02-21 08:08] VITALS: BP 121/70
[2017-02-21] MEDS: DIVALPROEX SODIUM 500 MG DR TABLET PO SCH ×3 (08:50→16:28)
[2017-02-21] MEDS: MAGNESIUM OXIDE 400 MG TABLET PO SCH ×2 (08:50→16:28)
[2017-02-21] MEDS: CHOLECALCIFEROL (VIT D3) 1,000 UNITS TABLET PO SCH (08:50)
[2017-02-21] MEDS: BENZTROPINE MESYLATE 1 MG TABLET PO SCH ×2 (08:50→16:28)
[2017-02-21 16:00] VITALS: BP 134/83
[2017-02-21] MEDS: QUEtiapine FUMARATE 200 MG TABLET PO SCH (20:07)
[2017-02-21] MEDS: HALOPERIDOL 10 MG TABLET PO SCH (20:08)
[2017-02-22 06:11] VITALS: BP 133/76
[2017-02-22] MEDS: FERROUS SULFATE 325 MG EC TABLET PO SCH ×2 (06:26→16:02)
[2017-02-22 08:07] VITALS: BP 123/58
[2017-02-22] MEDS: BENZTROPINE MESYLATE 1 MG TABLET PO SCH ×2 (08:48→16:02)
[2017-02-22] MEDS: DIVALPROEX SODIUM 500 MG DR TABLET PO SCH ×3 (08:48→16:02)
[2017-02-22] MEDS: CHOLECALCIFEROL (VIT D3) 1,000 UNITS TABLET PO SCH (08:48)
[2017-02-22] MEDS: MAGNESIUM OXIDE 400 MG TABLET PO SCH ×2 (08:48→16:02)
[2017-02-22 16:00] VITALS: BP 138/79
[2017-02-22] MEDS: QUEtiapine FUMARATE 200 MG TABLET PO SCH (21:09)
[2017-02-22] MEDS: HALOPERIDOL 10 MG TABLET PO SCH (21:10)
[2017-02-23] MEDS: FERROUS SULFATE 325 MG EC TABLET PO SCH ×2 (06:49→16:09)
[2017-02-23 08:12] VITALS: BP 129/72
[2017-02-23] MEDS: CHOLECALCIFEROL (VIT D3) 1,000 UNITS TABLET PO SCH (10:07)
[2017-02-23] MEDS: DIVALPROEX SODIUM 500 MG DR TABLET PO SCH ×3 (10:07→16:10)
[2017-02-23] MEDS: BENZTROPINE MESYLATE 1 MG TABLET PO SCH ×2 (10:07→16:09)
[2017-02-23] MEDS: MAGNESIUM OXIDE 400 MG TABLET PO SCH ×2 (10:07→16:09)
[2017-02-23 19:03] VITALS: BP 122/76
[2017-02-23] MEDS: QUEtiapine FUMARATE 200 MG TABLET PO SCH (20:01)
[2017-02-23] MEDS: HALOPERIDOL 10 MG TABLET PO SCH (20:01)
[2017-02-24] MEDS: FERROUS SULFATE 325 MG EC TABLET PO SCH ×2 (06:32→17:16)
[2017-02-24 08:14] VITALS: BP 140/78
[2017-02-24] MEDS: DIVALPROEX SODIUM 500 MG DR TABLET PO SCH ×3 (09:28→16:36)
[2017-02-24] MEDS: MAGNESIUM OXIDE 400 MG TABLET PO SCH ×2 (09:28→16:36)
[2017-02-24] MEDS: CHOLECALCIFEROL (VIT D3) 1,000 UNITS TABLET PO SCH (09:28)
[2017-02-24] MEDS: BENZTROPINE MESYLATE 1 MG TABLET PO SCH ×2 (09:28→16:36)
[2017-02-24] MEDS: IBUPROFEN 600 MG TABLET PO PRN (12:43)
[2017-02-24] MEDS: HALOPERIDOL 5 MG TABLET PO PRN (16:36)
[2017-02-24 16:49] VITALS: BP 111/75
[2017-02-24] MEDS: HALOPERIDOL 10 MG TABLET PO SCH (21:11)
[2017-02-24] MEDS: QUEtiapine FUMARATE 200 MG TABLET PO SCH (21:11)
[2017-02-25] MEDS: FERROUS SULFATE 325 MG EC TABLET PO SCH ×2 (06:52→17:44)
[2017-02-25 08:15] VITALS: BP 128/80
[2017-02-25] MEDS: BENZTROPINE MESYLATE 1 MG TABLET PO SCH ×2 (09:01→16:12)
[2017-02-25] MEDS: MAGNESIUM OXIDE 400 MG TABLET PO SCH ×2 (09:01→16:12)
[2017-02-25] MEDS: CHOLECALCIFEROL (VIT D3) 1,000 UNITS TABLET PO SCH (09:01)
[2017-02-25] MEDS: DIVALPROEX SODIUM 500 MG DR TABLET PO SCH ×3 (09:01→16:12)
[2017-02-25] MEDS: HALOPERIDOL 5 MG TABLET PO PRN (16:12)
[2017-02-25 16:41] VITALS: BP 141/76
[2017-02-25] MEDS: QUEtiapine FUMARATE 200 MG TABLET PO SCH (20:21)
[2017-02-25] MEDS: HALOPERIDOL 10 MG TABLET PO SCH (20:21)
[2017-02-26] MEDS: FERROUS SULFATE 325 MG EC TABLET PO SCH ×2 (06:37→16:57)
[2017-02-26 08:09] VITALS: BP 143/99
[2017-02-26] MEDS: CHOLECALCIFEROL (VIT D3) 1,000 UNITS TABLET PO SCH (09:50)
[2017-02-26] MEDS: DIVALPROEX SODIUM 500 MG DR TABLET PO SCH ×3 (09:50→16:57)
[2017-02-26] MEDS: BENZTROPINE MESYLATE 1 MG TABLET PO SCH ×2 (09:50→16:57)
[2017-02-26] MEDS: MAGNESIUM OXIDE 400 MG TABLET PO SCH ×2 (09:50→16:57)
[2017-02-26 18:36] VITALS: BP 140/81
[2017-02-26] MEDS: HALOPERIDOL 10 MG TABLET PO SCH (20:14)
[2017-02-26] MEDS: QUEtiapine FUMARATE 200 MG TABLET PO SCH (20:14)
[2017-02-27] MEDS: FERROUS SULFATE 325 MG EC TABLET PO SCH ×2 (06:33→16:17)
[2017-02-27 08:04] VITALS: BP 127/72
[2017-02-27] MEDS: DIVALPROEX SODIUM 500 MG DR TABLET PO SCH ×3 (09:26→16:17)
[2017-02-27] MEDS: MAGNESIUM OXIDE 400 MG TABLET PO SCH ×2 (09:26→16:17)
[2017-02-27] MEDS: CHOLECALCIFEROL (VIT D3) 1,000 UNITS TABLET PO SCH (09:26)
[2017-02-27] MEDS: BENZTROPINE MESYLATE 1 MG TABLET PO SCH ×2 (09:26→16:17)
[2017-02-27 17:11] VITALS: BP 116/61
[2017-02-27] MEDS ORDERED: MAGNESIUM OXIDE 400 MG TABLET PO SCH (19:15)
[2017-02-27] MEDS: QUEtiapine FUMARATE 200 MG TABLET PO SCH (20:01)
[2017-02-27] MEDS: HALOPERIDOL 10 MG TABLET PO SCH (20:01)
[2017-02-28] MEDS: FERROUS SULFATE 325 MG EC TABLET PO SCH ×2 (06:53→16:53)
[2017-02-28 08:00] VITALS: BP 123/76
[2017-02-28] MEDS: CHOLECALCIFEROL (VIT D3) 1,000 UNITS TABLET PO SCH (09:28)
[2017-02-28] MEDS: BENZTROPINE MESYLATE 1 MG TABLET PO SCH ×2 (09:28→16:53)
[2017-02-28] MEDS: DIVALPROEX SODIUM 500 MG DR TABLET PO SCH ×3 (09:28→16:52)
[2017-02-28] MEDS: MAGNESIUM OXIDE 400 MG TABLET PO SCH ×2 (09:28→16:53)
[2017-02-28 20:13] VITALS: BP 126/79
[2017-02-28] MEDS: HALOPERIDOL 10 MG TABLET PO SCH (20:34)
[2017-02-28] MEDS: QUEtiapine FUMARATE 200 MG TABLET PO SCH (20:34)
[2017-03-01] MEDS: FERROUS SULFATE 325 MG EC TABLET PO SCH ×2 (06:51→16:11)
[2017-03-01 08:00] VITALS: BP 124/72
[2017-03-01 08:40] VITALS: BP 124/72
[2017-03-01] MEDS: MAGNESIUM OXIDE 400 MG TABLET PO SCH ×2 (09:44→16:11)
[2017-03-01] MEDS: CHOLECALCIFEROL (VIT D3) 1,000 UNITS TABLET PO SCH (09:45)
[2017-03-01] MEDS: DIVALPROEX SODIUM 500 MG DR TABLET PO SCH ×3 (09:45→16:11)
[2017-03-01] MEDS: BENZTROPINE MESYLATE 1 MG TABLET PO SCH ×2 (09:45→16:11)
[2017-03-01 18:38] VITALS: BP 124/74
[2017-03-01] MEDS: HALOPERIDOL 10 MG TABLET PO SCH (20:07)
[2017-03-01] MEDS: QUEtiapine FUMARATE 200 MG TABLET PO SCH (20:07)
[2017-03-02] MEDS: FERROUS SULFATE 325 MG EC TABLET PO SCH ×2 (06:39→16:28)
[2017-03-02] MEDS: DIVALPROEX SODIUM 500 MG DR TABLET PO SCH ×3 (11:43→16:28)
[2017-03-02] MEDS: CHOLECALCIFEROL (VIT D3) 1,000 UNITS TABLET PO SCH (11:44)
[2017-03-02] MEDS: MAGNESIUM OXIDE 400 MG TABLET PO SCH ×2 (11:44→16:28)
[2017-03-02] MEDS: BENZTROPINE MESYLATE 1 MG TABLET PO SCH ×2 (11:44→16:28)
[2017-03-02] MEDS: QUEtiapine FUMARATE 200 MG TABLET PO SCH (20:09)
[2017-03-02] MEDS: HALOPERIDOL 10 MG TABLET PO SCH (20:09)
[2017-03-03] MEDS: FERROUS SULFATE 325 MG EC TABLET PO SCH ×2 (06:23→17:41)
[2017-03-03] MEDS: DIVALPROEX SODIUM 500 MG DR TABLET PO SCH ×3 (08:21→17:41)
[2017-03-03] MEDS: MAGNESIUM OXIDE 400 MG TABLET PO SCH ×2 (08:21→17:41)
[2017-03-03] MEDS: BENZTROPINE MESYLATE 1 MG TABLET PO SCH ×2 (08:21→17:41)
[2017-03-03] MEDS: CHOLECALCIFEROL (VIT D3) 1,000 UNITS TABLET PO SCH (08:21)
[2017-03-03 19:36] VITALS: BP 134/76
[2017-03-03] MEDS: QUEtiapine FUMARATE 200 MG TABLET PO SCH (20:45)
[2017-03-03] MEDS: HALOPERIDOL 10 MG TABLET PO SCH (20:46)
[2017-03-04] MEDS: FERROUS SULFATE 325 MG EC TABLET PO SCH ×2 (06:38→16:38)
[2017-03-04] MEDS: MAGNESIUM OXIDE 400 MG TABLET PO SCH ×2 (08:17→16:37)
[2017-03-04] MEDS: CHOLECALCIFEROL (VIT D3) 1,000 UNITS TABLET PO SCH (08:17)
[2017-03-04] MEDS: DIVALPROEX SODIUM 500 MG DR TABLET PO SCH ×3 (08:17→16:37)
[2017-03-04] MEDS: BENZTROPINE MESYLATE 1 MG TABLET PO SCH ×2 (08:17→16:37)
[2017-03-04 16:33] VITALS: BP 145/78
[2017-03-04] MEDS: HALOPERIDOL 10 MG TABLET PO SCH (20:06)
[2017-03-04] MEDS: QUEtiapine FUMARATE 200 MG TABLET PO SCH (20:06)
[2017-03-05] MEDS: FERROUS SULFATE 325 MG EC TABLET PO SCH ×2 (06:36→16:44)
[2017-03-05 08:51] VITALS: BP 116/74
[2017-03-05] MEDS: MAGNESIUM OXIDE 400 MG TABLET PO SCH ×2 (09:00→16:44)
[2017-03-05] MEDS: DIVALPROEX SODIUM 500 MG DR TABLET PO SCH ×3 (09:00→16:44)
[2017-03-05] MEDS: BENZTROPINE MESYLATE 1 MG TABLET PO SCH ×2 (09:00→16:44)
[2017-03-05] MEDS: CHOLECALCIFEROL (VIT D3) 1,000 UNITS TABLET PO SCH (09:00)
[2017-03-05 16:07] VITALS: BP 132/81
[2017-03-05] MEDS: HALOPERIDOL 10 MG TABLET PO SCH (20:44)
[2017-03-05] MEDS: QUEtiapine FUMARATE 200 MG TABLET PO SCH (20:44)
[2017-03-06] MEDS: FERROUS SULFATE 325 MG EC TABLET PO SCH ×2 (07:00→16:54)
[2017-03-06 08:46] VITALS: BP 134/71
[2017-03-06] MEDS: DIVALPROEX SODIUM 500 MG DR TABLET PO SCH ×3 (08:52→16:00)
[2017-03-06] MEDS: CHOLECALCIFEROL (VIT D3) 1,000 UNITS TABLET PO SCH (08:52)
[2017-03-06] MEDS: BENZTROPINE MESYLATE 1 MG TABLET PO SCH ×2 (08:52→16:00)
[2017-03-06] MEDS: MAGNESIUM OXIDE 400 MG TABLET PO SCH ×2 (08:52→16:00)
[2017-03-06 19:02] VITALS: BP 138/73
[2017-03-06] MEDS: QUEtiapine FUMARATE 200 MG TABLET PO SCH (20:11)
[2017-03-06] MEDS: HALOPERIDOL 10 MG TABLET PO SCH (20:12)
[2017-03-07] MEDS: FERROUS SULFATE 325 MG EC TABLET PO SCH ×2 (07:03→16:06)
[2017-03-07] MEDS: DIVALPROEX SODIUM 500 MG DR TABLET PO SCH ×3 (09:31→16:05)
[2017-03-07] MEDS: CHOLECALCIFEROL (VIT D3) 1,000 UNITS TABLET PO SCH (09:31)
[2017-03-07] MEDS: MAGNESIUM OXIDE 400 MG TABLET PO SCH ×2 (09:31→16:07)
[2017-03-07] MEDS: BENZTROPINE MESYLATE 1 MG TABLET PO SCH ×2 (09:32→16:06)
[2017-03-07 10:56] VITALS: BP 132/89
[2017-03-07 17:31] VITALS: BP 131/81
[2017-03-07] MEDS: QUEtiapine FUMARATE 200 MG TABLET PO SCH (20:11)
[2017-03-07] MEDS: HALOPERIDOL 10 MG TABLET PO SCH (20:12)
[2017-03-08] MEDS: FERROUS SULFATE 325 MG EC TABLET PO SCH ×2 (06:42→17:06)
[2017-03-08] MEDS: DIVALPROEX SODIUM 500 MG DR TABLET PO SCH ×3 (08:19→17:06)
[2017-03-08] MEDS: BENZTROPINE MESYLATE 1 MG TABLET PO SCH ×2 (08:19→17:07)
[2017-03-08] MEDS: CHOLECALCIFEROL (VIT D3) 1,000 UNITS TABLET PO SCH (08:19)
[2017-03-08] MEDS: MAGNESIUM OXIDE 400 MG TABLET PO SCH ×2 (08:20→17:06)
[2017-03-08 09:05] VITALS: BP 131/79
[2017-03-08 16:32] VITALS: BP 114/56
[2017-03-08] MEDS: QUEtiapine FUMARATE 200 MG TABLET PO SCH (20:08)
[2017-03-08] MEDS: HALOPERIDOL 10 MG TABLET PO SCH (20:08)
[2017-03-09] MEDS: FERROUS SULFATE 325 MG EC TABLET PO SCH ×2 (07:00→16:21)
[2017-03-09 08:00] VITALS: BP 125/83
[2017-03-09] MEDS: MAGNESIUM OXIDE 400 MG TABLET PO SCH ×2 (08:50→16:21)
[2017-03-09] MEDS: CHOLECALCIFEROL (VIT D3) 1,000 UNITS TABLET PO SCH (08:50)
[2017-03-09] MEDS: DIVALPROEX SODIUM 500 MG DR TABLET PO SCH ×3 (08:50→16:22)
[2017-03-09] MEDS: BENZTROPINE MESYLATE 1 MG TABLET PO SCH ×2 (08:50→16:22)
[2017-03-09 16:32] VITALS: BP 127/69
[2017-03-09] MEDS: QUEtiapine FUMARATE 200 MG TABLET PO SCH (20:37)
[2017-03-09] MEDS: HALOPERIDOL 10 MG TABLET PO SCH (20:37)
[2017-03-10] MEDS: FERROUS SULFATE 325 MG EC TABLET PO SCH ×2 (06:46→16:25)
[2017-03-10 08:00] VITALS: BP 130/73
[2017-03-10] MEDS: BENZTROPINE MESYLATE 1 MG TABLET PO SCH ×2 (08:35→16:26)
[2017-03-10] MEDS: DIVALPROEX SODIUM 500 MG DR TABLET PO SCH ×3 (08:35→16:25)
[2017-03-10] MEDS: MAGNESIUM OXIDE 400 MG TABLET PO SCH ×2 (08:35→16:25)
[2017-03-10] MEDS: CHOLECALCIFEROL (VIT D3) 1,000 UNITS TABLET PO SCH (08:35)
[2017-03-10] MEDS: HALOPERIDOL 5 MG TABLET PO PRN (13:31)
[2017-03-10 16:25] VITALS: BP 128/89
[2017-03-10] MEDS: HALOPERIDOL 10 MG TABLET PO SCH (20:41)
[2017-03-10] MEDS: QUEtiapine FUMARATE 200 MG TABLET PO SCH (20:41)
[2017-03-11] MEDS: FERROUS SULFATE 325 MG EC TABLET PO SCH ×2 (07:02→16:36)
[2017-03-11 08:00] VITALS: BP 129/74
[2017-03-11] MEDS: CHOLECALCIFEROL (VIT D3) 1,000 UNITS TABLET PO SCH (08:52)
[2017-03-11] MEDS: HALOPERIDOL 5 MG TABLET PO PRN (08:52)
[2017-03-11] MEDS: DIVALPROEX SODIUM 500 MG DR TABLET PO SCH ×3 (08:53→16:05)
[2017-03-11] MEDS: MAGNESIUM OXIDE 400 MG TABLET PO SCH ×2 (08:53→16:05)
[2017-03-11] MEDS: BENZTROPINE MESYLATE 1 MG TABLET PO SCH ×2 (08:53→16:05)
[2017-03-11 19:30] VITALS: BP 123/77
[2017-03-11] MEDS: QUEtiapine FUMARATE 200 MG TABLET PO SCH (20:07)
[2017-03-11] MEDS: HALOPERIDOL 10 MG TABLET PO SCH (20:07)
[2017-03-12] MEDS: FERROUS SULFATE 325 MG EC TABLET PO SCH ×2 (06:34→16:13)
[2017-03-12] MEDS: CHOLECALCIFEROL (VIT D3) 1,000 UNITS TABLET PO SCH (09:10)
[2017-03-12] MEDS: DIVALPROEX SODIUM 500 MG DR TABLET PO SCH ×3 (09:10→16:13)
[2017-03-12] MEDS: BENZTROPINE MESYLATE 1 MG TABLET PO SCH ×2 (09:10→16:13)
[2017-03-12] MEDS: MAGNESIUM OXIDE 400 MG TABLET PO SCH ×2 (09:10→16:13)
[2017-03-12 11:49] VITALS: BP 117/75
[2017-03-12 17:05] VITALS: BP 125/58
[2017-03-12] MEDS: QUEtiapine FUMARATE 200 MG TABLET PO SCH (20:04)
[2017-03-12] MEDS: HALOPERIDOL 10 MG TABLET PO SCH (20:04)
[2017-03-13] MEDS: FERROUS SULFATE 325 MG EC TABLET PO SCH ×2 (06:59→17:24)
[2017-03-13] MEDS: DIVALPROEX SODIUM 500 MG DR TABLET PO SCH ×3 (08:54→16:38)
[2017-03-13] MEDS: BENZTROPINE MESYLATE 1 MG TABLET PO SCH ×2 (08:54→16:38)
[2017-03-13] MEDS: CHOLECALCIFEROL (VIT D3) 1,000 UNITS TABLET PO SCH (08:54)
[2017-03-13] MEDS: MAGNESIUM OXIDE 400 MG TABLET PO SCH ×2 (08:54→16:38)
[2017-03-13 10:07] VITALS: BP 122/70
[2017-03-13 19:35] VITALS: BP 124/77
[2017-03-13] MEDS: QUEtiapine FUMARATE 200 MG TABLET PO SCH (20:17)
[2017-03-13] MEDS: HALOPERIDOL 10 MG TABLET PO SCH (20:17)
[2017-03-14] MEDS: FERROUS SULFATE 325 MG EC TABLET PO SCH ×2 (07:11→16:15)
[2017-03-14 08:00] VITALS: BP 119/77
[2017-03-14] MEDS: CHOLECALCIFEROL (VIT D3) 1,000 UNITS TABLET PO SCH (09:03)
[2017-03-14] MEDS: DIVALPROEX SODIUM 500 MG DR TABLET PO SCH ×3 (09:03→16:15)
[2017-03-14] MEDS: BENZTROPINE MESYLATE 1 MG TABLET PO SCH ×2 (09:03→16:15)
[2017-03-14] MEDS: MAGNESIUM OXIDE 400 MG TABLET PO SCH ×2 (09:03→16:15)
[2017-03-14 16:50] VITALS: BP 138/78
[2017-03-14] MEDS: HALOPERIDOL 10 MG TABLET PO SCH (19:57)
[2017-03-14] MEDS: QUEtiapine FUMARATE 200 MG TABLET PO SCH (19:57)
[2017-03-15] MEDS: FERROUS SULFATE 325 MG EC TABLET PO SCH ×2 (07:06→16:03)
[2017-03-15 08:30] VITALS: BP 131/71
[2017-03-15] MEDS: MAGNESIUM OXIDE 400 MG TABLET PO SCH ×2 (09:24→16:04)
[2017-03-15] MEDS: BENZTROPINE MESYLATE 1 MG TABLET PO SCH ×2 (09:24→16:04)
[2017-03-15] MEDS: CHOLECALCIFEROL (VIT D3) 1,000 UNITS TABLET PO SCH (09:24)
[2017-03-15] MEDS: DIVALPROEX SODIUM 500 MG DR TABLET PO SCH ×3 (09:24→16:04)
[2017-03-15 16:55] VITALS: BP 137/87
[2017-03-15 16:56] VITALS: BP 137/87
[2017-03-15] MEDS: QUEtiapine FUMARATE 200 MG TABLET PO SCH (20:04)
[2017-03-15] MEDS: HALOPERIDOL 10 MG TABLET PO SCH (20:04)
[2017-03-16] MEDS: FERROUS SULFATE 325 MG EC TABLET PO SCH ×2 (06:39→16:14)
[2017-03-16 08:43] VITALS: BP 148/80
[2017-03-16] MEDS: DIVALPROEX SODIUM 500 MG DR TABLET PO SCH ×3 (09:34→16:14)
[2017-03-16] MEDS: CHOLECALCIFEROL (VIT D3) 1,000 UNITS TABLET PO SCH (09:34)
[2017-03-16] MEDS: MAGNESIUM OXIDE 400 MG TABLET PO SCH (09:34)
[2017-03-16] MEDS: BENZTROPINE MESYLATE 1 MG TABLET PO SCH ×2 (09:34→16:14)
[2017-03-16 16:34] VITALS: BP 131/86
[2017-03-16] MEDS: QUEtiapine FUMARATE 200 MG TABLET PO SCH (20:12)
[2017-03-16] MEDS: HALOPERIDOL 10 MG TABLET PO SCH (20:12)
[2017-03-17] MEDS: FERROUS SULFATE 325 MG EC TABLET PO SCH ×2 (06:56→17:07)
[2017-03-17 08:11] VITALS: BP 146/78
[2017-03-17] MEDS: CHOLECALCIFEROL (VIT D3) 1,000 UNITS TABLET PO SCH (09:15)
[2017-03-17] MEDS: BENZTROPINE MESYLATE 1 MG TABLET PO SCH ×2 (09:15→17:07)
[2017-03-17] MEDS: DIVALPROEX SODIUM 500 MG DR TABLET PO SCH ×3 (09:15→17:06)
[2017-03-17 18:21] VITALS: BP 124/77
[2017-03-17] MEDS: QUEtiapine FUMARATE 200 MG TABLET PO SCH (20:18)
[2017-03-17] MEDS: HALOPERIDOL 10 MG TABLET PO SCH (20:18)
[2017-03-18 02:15] VITALS: BP 107/78
[2017-03-18] MEDS: FERROUS SULFATE 325 MG EC TABLET PO SCH (06:41)
[2017-03-18] MEDS ORDERED: FERR-89 PO (07:54)
[2017-03-18] MEDS ORDERED: HALO10 PO (07:54)
[2017-03-18] MEDS ORDERED: VITAD1000 PO (07:54)
[2017-03-18] MEDS ORDERED: DIVA500T35 PO (07:54)
[2017-03-18] MEDS ORDERED: QUET200T PO (07:54)
[2017-03-18] MEDS ORDERED: BENZ1TAB10 PO (07:54)
[2017-03-18] MEDS: CHOLECALCIFEROL (VIT D3) 1,000 UNITS TABLET PO SCH (08:05)
[2017-03-18] MEDS: BENZTROPINE MESYLATE 1 MG TABLET PO SCH (08:05)
[2017-03-18] MEDS: DIVALPROEX SODIUM 500 MG DR TABLET PO SCH ×2 (08:05→11:55)
== END 2017-03-18 09:00 | DRG 750 ==
LOC: B3A 11-23 02:15 → B2S 02-03 17:00 → 3EI 02-22 18:35
PROVIDERS: ADMIT Psychiatry & Neurology Psychiatry; ATTEND Psychiatry & Neurology Psychiatry
DX: F20.0 Paranoid schizophrenia (principal); N39.0 Urinary tract infection, site not specified; E55.9 Vitamin D deficiency, unspecified; J44.9 Chronic obstructive pulmonary disease, unspecified; M25.511 Pain in right shoulder; Z72.0 Tobacco use; F12.90 Cannabis use, unspecified, uncomplicated; M25.422 Effusion, left elbow; D64.9 Anemia, unspecified; E61.2 Magnesium deficiency; R63.5 Abnormal weight gain; Z68.30 Body mass index [BMI] 30.0-30.9, adult; Z22.322 Carrier or suspected carrier of Methicillin resistant Staphylococcus aureus
CPT/HCPCS: 71020; 80074; 82306; 83735; 84100; 84443; 87081; 87086